=== PATIENT | female | born 1945 | race Caucasian/White ===

== ENCOUNTER → 2019-07-18 15:35 | Outpatient (CLI) | payer MEDICARE, MEDICAID, SELFPAY ==
--- NOTE | 2019-07-18 15:40 | DI.RAD.S_ITS ---
PROCEDURE: XR LUMBAR SPINE MIN 4V INDICATIONS: axial low back pain >3 months TECHNIQUE: 5 views of the lumbar spine were acquired. COMPARISON: [facility], CR, SPINE LUMB 2 OR 3VW, 05/09/2015, 14:26. FINDINGS: Bones: No fracture or focal osseous destruction. Multilevel degenerative endplate sclerosis and spurring. Diffuse facet arthropathy. Straightening of the normal lordotic curvature. Severe diffuse narrowing of the lumbar disc spaces. Dextroscoliosis as before Soft tissues: Overlying bowel gas pattern is normal. No suspicious soft tissue calcifications. Oblique images: Severely suboptimal due to advanced degenerative sclerosis IMPRESSION: Severe lumbar spondylosis and facet arthropathy. No definite change since 05/09/15 Straightening of the normal lordotic curvature. Dextroscoliosis as before Dictated by: Bakari Dave M.D. on 07/18/2019 at 16:47 Approved by: Bakari Dave M.D. on 07/18/2019 at 16:51
--- NOTE | 2019-07-18 15:40 | DI.MRI.S_ITS ---
PROCEDURE: MR LUMBAR SPINE WO CON INDICATIONS: axial low back pain >3 months TECHNIQUE: Noncontrast sagittal T1 spin echo and T2 fast echo, sagittal STIR, axial T1 and T2 fast spin echo through the lumbar spine. In cases with scoliosis, additional coronal T2 fast spin echo may be performed. COMPARISON: [facility], MR, LUMBAR SPINE W/O CONTRAST, 05/20/2015, 11:39. FINDINGS: Image quality: Excellent. Alignment and Curvature: Dextroscoliosis Bone Marrow: No acute fracture. Straightening of the normal lordotic curvature. Multilevel degenerative endplate sclerosis and spurring. Diffuse facet arthropathy. Spinal Cord: Conus medullaris terminates at the L1 level. Visualized cord demonstrates normal signal and size. Paraspinous Soft Tissues: There is nonspecific, dependent posterior subcutaneous soft tissue edema from level of L1-L5 L1-L2: Mild canal narrowing. Moderate left foraminal narrowing. No right foraminal stenosis. No interval change. Partial effacement of both lateral recesses with asymmetric appearance, left greater than right. L2-L3: No canal stenosis. No foraminal narrowing Partial effacement of both lateral recesses with bilaterally symmetric appearance. No interval change L3-L4: Mild to moderate canal stenosis. Left lateral recess appears patent. There is severe effacement of the right lateral recess which appears grossly unchanged. Mild bilateral foraminal narrowing. No interval change L4-L5: No canal stenosis. Partial effacement of both lateral recesses with bilaterally symmetric appearance. Mild bilateral foraminal narrowing L5-S1: No canal stenosis. No lateral recess narrowing. Mild right foraminal stenosis. No left foraminal narrowing. No interval change IMPRESSION: Overall, no interval change since 05/20/15 as detailed above. Dextroscoliosis. Dictated by: Bakari Dave M.D. on 07/18/2019 at 17:30 Approved by: Bakari Dave M.D. on 07/18/2019 at 17:38
== END ==
PROVIDERS: PCP Family Medicine; Visit Provider Registered Nurse
DX: M54.5 Low back pain (principal); M41.9 Scoliosis, unspecified; M47.817 Spondylosis without myelopathy or radiculopathy, lumbosacral region; M47.816 Spondylosis without myelopathy or radiculopathy, lumbar region
CPT/HCPCS: 72110; 72148

== ENCOUNTER 2020-01-13 20:04 | Emergency (ER) | payer MEDICARE, MEDICAID, SELFPAY ==
[2020-01-13 20:15] VITALS: BP 185/81; PULSE 102; RESP 19; TEMP 36.8; O2SAT 95; BMI 36.5
--- NOTE | 2020-01-13 21:02 | ED.URI ---
HPI - URI/Sore Throat General Chief Complaint: Upper Respiratory Symptoms Stated Complaint: cough,fever Time Seen by Provider: 01/13/20 20:16 Source: patient Mode of arrival: Family Vehicle Limitations: no limitations History of Present Illness HPI Narrative: 74-year-old female nonsmoker with history of asthma and diabetes presents with a chief complaint of some increasing work of breathing and cough withSome body aches and chills but no measured fever. She denies any recent travel or exposure to known persons of interest for COVID-19. Patient has been using her bronchodilators at home. She has had no nausea or vomiting. She denies any chest pain. She has had no constipation or diarrhea. She has had no dysuria, frequency or urgency. MD Complaint: cough and nasal congestion Onset (ago): day(s) Duration: constant Severity: moderate Relieving factors: nothing Exacerbating factors: nothing Description of mucous: clear Able to tolerate fluids by mouth: Yes Associated symptoms: rhinorrhea, nasal congestion and cough Treatments prior to arrival: cold medicine Related Data Home Medications Medication Instructions Recorded Confirmed mecobalamin (vitamin B12) PO DAILY 07/04/19 07/04/19 Previous Rx's Medication Instructions Recorded glipizide [Glucotrol XL] 5 mg PO QAM #90 tab 02/19/17 omeprazole 20 mg PO QAM #90 cap 02/23/17 albuterol sulfate 3 ml INH X1 PRN #1 box 05/03/17 albuterol sulfate [Ventolin HFA] 1 puff INH Q4HP PRN #8 gm 05/03/17 inhalational spacing device #1 u 05/03/17 [Vortex Holding Chamber] losartan 25 mg PO QDAY #90 tab 07/05/17 lidocaine 5 % topical patch 1 patch TOP DAILY #30 each MDD 12 07/04/19 hours in a 24 hour period naproxen 500 mg tablet 500 mg PO BID #180 tab 07/04/19 prednisone See Rx Instructions .ROUTE 01/14/20 .COMPLEX #30 tab Allergies Allergy/AdvReac Type Severity Reaction Status Date / Time amphetamine [AMPHETAMINE] Allergy Mild ELEVATED BP Verified 07/04/19 15:30 fentanyl [FENTANYL] Allergy Mild Verified 07/04/19 15:30 fluoxetine [FLUOXETINE] Allergy Mild Verified 07/04/19 15:30 hydrocodone [HYDROCODONE] Allergy Mild Verified 07/04/19 15:30 theophylline [THEOPHYLLINE] Allergy Mild Verified 07/04/19 15:30 Petroleum Liquids Products Allergy Unknown swelling, Uncoded 07/04/19 15:30 wells Propellant used with some Allergy Unknown Uncoded 07/04/19 15:30 Albuterol Review of Systems Constitutional Constitutional: Reports body ache(s), Reports chills, Denies fatigue, Denies fever(s), Denies frequent falls, Denies lethargy and Denies weakness Eyes Eyes: Denies change in vision, Denies eye discharge, Denies irritation and Denies loss of vision ENT Ears, Nose, Mouth, and Throat: Denies change in voice, Denies dizziness, Reports nasal congestion, Denies neck pain, Denies sore throat and Denies throat swelling Cardiovascular Cardiovascular: Denies chest pain, Denies irregular heart rhythm, Denies lightheadedness, Denies palpitations, Reports dyspnea, Denies dyspnea on exertion and Denies orthopnea Respiratory Respiratory: Reports cough, Reports dyspnea, Denies dyspnea on exertion and Reports wheezing Gastrointestinal Gastrointestinal: Denies abdominal pain, Denies change in bowel habits, Denies diarrhea, Denies nausea and Denies vomiting Genitourinary Genitourinary: Denies hematuria, Denies flank pain, Denies urinary incontinence and Denies urinary urgency Musculoskeletal Musculoskeletal: Denies back pain, Denies muscle weakness, Denies neck pain, Denies numbness and Denies tingling Integumentary/Breasts Skin/Breast: Denies pruritus, Denies erythema, Denies rash and Denies wounds Neurologic Neurologic: Denies behavioral changes, Denies confusion, Denies dizziness, Denies frequent falls, Denies loss of vision, Denies numbness, Denies tingling and Denies weakness Psychiatric Psychiatric: Denies anxiety, Denies behavioral changes, Denies confusion, Denies depression, Denies homicidal ideation and Denies suicidal ideation Endocrine Endocrine: Denies fatigue, Denies flushing and Denies palpitations Hematologic/Lymphatic Hematologic/Lymphatic: Denies easy bruising Allergic/Immunologic Allergic/Immunologic: Denies urticaria, Denies throat swelling and Reports wheezing Patient History Social History Smoking Status: Former smoker Smoking Status: Former smoker Substance Use Type: does not use Exam Narrative Exam Narrative: GENERAL: [74] year old patient appears stated age. Well-nourished, well-developed patient, in mild distress. HEAD: Atraumatic. Normocephalic. EYES: Pupils equal round and reactive. Extraocular motions intact. No scleral icterus. No injection or drainage. ENT: Nose without bleeding, purulent drainage. Throat without erythema, tonsillar hypertrophy or exudate. Airway patent. NECK: Trachea midline. Non tender CARDIOVASCULAR: Regular rate and rhythm without murmurs, gallops, or rubs. RESPIRATORY: Mild expiratory wheeze, most noted in bilateral bases, no rales or rhonchi. No signs of respiratory distress such as tachypnea or use of accessory muscles GASTROINTESTINAL: Abdomen soft, non-tender, nondistended. EXTREMITIES: No edema or joint tenderness. BACK: Nontender without deformity or crepitance. No flank tenderness. NEURO: AOx3. SKIN: No rash or erythema of visible areas Initial Vital Signs Initial Vital Signs: Vital Signs Temperature 98.3 F 01/13/20 20:15 Pulse Rate 102 H 01/13/20 20:15 Respiratory Rate 19 01/13/20 20:15 Blood Pressure 185/81 H 01/13/20 20:15 Pulse Oximetry 95 01/13/20 20:15 Course Course Course Narrative: Patient feeling better after bronchodilators and some steroid. We were preparing to discharge the patient when she said that she had been dropped off by her son who then drove to [place]. She has no car and lives in the [facility] and there are no more ferries running. Patient resting well throughout the course of the night. She has obstructive sleep apnea and there has been talk about getting her on oxygen at home while she sleeps, over the course of the night she had 2 L by nasal cannula and had sats in the mid to upper 90s. Upon waking she feels well and is able to ambulate to the bathroom without any difficulty, she does have some harsh cough. She has been given extensive return precautions has had questions answered to her apparent satisfaction. She wants to leave and take a cab to the [place] and has support upon her return Orders Ordered: ED Orders 01/13/20 21:24 Influenza A & B (PCR) Stat 01/13/20 22:25 Basic Metabolic Panel Stat Complete Blood Count AUTO DIFF Stat Procalcitonin Stat 01/14/20 05:00 Respiratory Panel (Film Array) Stat Discontinued Medications Albuterol/Ipratropium (Duoneb) 3 ml INH NOW ONE Stop: 01/13/20 21:28 Last Admin: 01/13/20 21:45 Dose: 3 ml Documented by: VINCENT Prednisone (Deltasone) 40 mg PO NOW ONE Stop: 01/13/20 21:28 Last Admin: 01/13/20 22:42 Dose: 40 mg Documented by: GLORIA Vital Signs Vital signs: Vital Signs - 8 hr 01/13/20 23:38 01/14/20 03:00 01/14/20 05:00 Pulse Rate 91 H 83 83 Respiratory Rate 16 Blood Pressure [Right Arm] 151/66 H 143/65 H 155/70 H Pulse Oximetry 92 95 94 01/14/20 06:30 Pulse Rate 83 Respiratory Rate 15 Blood Pressure [Right Arm] 151/66 H Pulse Oximetry 96 MDM - URI/Sore Throat Lab Data Result diagrams: 01/14/20 00:36 01/14/20 00:36 Labs: Lab Results 01/13/20 01/14/20 01/14/20 Range/Units 21:24 00:36 00:36 WBC 5.0 (4.5-11.0) X10^3/uL RBC 3.98 L (4.0-5.2) X10^6/uL Hgb 12.6 (12.0-16.0) g/dL Hct 37.3 (36-46) % MCV 93.7 (80-100) fL MCH 31.7 (26-34) PG MCHC 33.8 (30-36) % RDW 13.0 (11.6-14.8) % Plt Count 157 (150-400) X10^3/uL Neut % (Auto) 66.4 (50-75) % Lymph % (Auto) 15.8 L (25-40) % Andrews % (Auto) 13.9 (3-14) % Eos % (Auto) 3.2 (2-4) % Baso % (Auto) 0.7 (0-2) % Neut # (Auto) 3300 (4496-0439) /uL Lymph # (Auto) 800 L (2204-9326) /uL Andrews # (Auto) 700 (0-900) /uL Eos # (Auto) 200 (0-450) /uL Baso # (Auto) 0 (0-100) /uL Sodium (137-145) mmol/L Potassium (3.4-5.1) mmol/L Chloride (98-107) mmol/L Carbon Dioxide (22-32) mmol/L BUN (7-17) mg/dL Creatinine (0.52-1.04) mg/dL Estimated GFR (>60) mL/min BUN/Creatinine Ratio (6-22) Glucose (80-110) mg/dL Calcium (8.4-10.2) mg/dL Procalcitonin < 0.05 (<0.5) ng/mL Chlamy pneumoniae PCR (Not Detect) Adenovirus (PCR) (Not Detect) B.parapertussis DNA PCR (Not Detect) Coronavirus OC43 (PCR) (Not Detect) Coronavirus HKU1 (PCR) (Not Detect) Coronavirus 229E (PCR) (Not Detect) Coronavirus NL63 (PCR) (Not Detect) Human Metapneumovir PCR (Not Detect) Influenza A (RT-PCR) Flu a negative (NEGATIVE) Influenza Type A (PCR) (Not Detect) Influenza B (RT-PCR) Flu b negative (NEGATIVE) Influenza Type B (PCR) (Not Detect) M. pneumoniae (PCR) (Not Detect) Parainfluenza 1 (PCR) (Not Detect) Parainfluenza 2 (PCR) (Not Detect) Parainfluenza 3 (PCR) (Not Detect) Parainfluenza 4 (PCR) (Not Detect) RSV (PCR) (Not Detect) Entero/Rhino (PCR) (Not Detect) 01/14/20 01/14/20 Range/Units 00:36 05:00 WBC (4.5-11.0) X10^3/uL RBC (4.0-5.2) X10^6/uL Hgb (12.0-16.0) g/dL Hct (36-46) % MCV (80-100) fL MCH (26-34) PG MCHC (30-36) % RDW (11.6-14.8) % Plt Count (150-400) X10^3/uL Neut % (Auto) (50-75) % Lymph % (Auto) (25-40) % Andrews % (Auto) (3-14) % Eos % (Auto) (2-4) % Baso % (Auto) (0-2) % Neut # (Auto) (4051-5477) /uL Lymph # (Auto) (3215-3265) /uL Andrews # (Auto) (0-900) /uL Eos # (Auto) (0-450) /uL Baso # (Auto) (0-100) /uL Sodium 137 (137-145) mmol/L Potassium 3.8 (3.4-5.1) mmol/L Chloride 103 (98-107) mmol/L Carbon Dioxide 28 (22-32) mmol/L BUN 22 H (7-17) mg/dL Creatinine 0.90 (0.52-1.04) mg/dL Estimated GFR > 60.0 (>60) mL/min BUN/Creatinine Ratio 24.4 H (6-22) Glucose 224 H (80-110) mg/dL Calcium 9.0 (8.4-10.2) mg/dL Procalcitonin (<0.5) ng/mL Chlamy pneumoniae PCR Not detected (Not Detect) Adenovirus (PCR) Not detected (Not Detect) B.parapertussis DNA PCR Not detected (Not Detect) Coronavirus OC43 (PCR) Not detected (Not Detect) Coronavirus HKU1 (PCR) Not detected (Not Detect) Coronavirus 229E (PCR) Not detected (Not Detect) Coronavirus NL63 (PCR) Not detected (Not Detect) Human Metapneumovir PCR Detected H (Not Detect) Influenza A (RT-PCR) (NEGATIVE) Influenza Type A (PCR) Not detected (Not Detect) Influenza B (RT-PCR) (NEGATIVE) Influenza Type B (PCR) Not detected (Not Detect) M. pneumoniae (PCR) Not detected (Not Detect) Parainfluenza 1 (PCR) Not detected (Not Detect) Parainfluenza 2 (PCR) Not detected (Not Detect) Parainfluenza 3 (PCR) Not detected (Not Detect) Parainfluenza 4 (PCR) Not detected (Not Detect) RSV (PCR) Not detected (Not Detect) Entero/Rhino (PCR) Not detected (Not Detect) Imaging Data Chest x-ray: Radiologist's Impression: [address] [address] XRay Report Signed Patient: Carlitos Abdullahi#: [id number] : 1945Acct:[id number] Age/Sex: 74 / FDate of Service: 01/13/20 Loc: ED Accession Number: [id number] Procedure: XR chest 2V Ordering Provider: Blake Steen D.O. PROCEDURE: XR CHEST 2V INDICATIONS: cough, fever TECHNIQUE: 2 views of the chest were acquired. COMPARISON: [facility], CHEST 2 VIEW, 03/03/2007, 18:36. FINDINGS: Surgical changes and devices: None. Lungs and pleura: Lungs are clear. No pleural effusions or pneumothorax. Mediastinum: Mediastinal contours are normal. Heart size is normal. Bones and chest wall: No suspicious bony abnormalities. Soft tissues appear unremarkable. IMPRESSION: No acute cardiopulmonary pathology. Dictated by: Ruben Keane M.D. on 01/13/2020 at 21:20 Approved by: Ruben Keane M.D. on 01/13/2020 at 21:21 Discharge Plan Departure Patient Disposition: Home Clinical Impression: Upper respiratory virus Asthma exacerbation Qualifiers: Asthma severity: mild Asthma persistence: intermittent Qualified Code(s): J45.21 - Mild intermittent asthma with (acute) exacerbation Instructions: Asthma -- Adult, DI for Viral Upper Respiratory Infection -- Adult Activity Restrictions/Additional Instructions: *You have been diagnosed with [acute viral upper respiratory infection with asthma exacerbation] *What to do: *Take medications as directed *Follow up with your primary care provider in 2-3 days, call for an appointment. Let them know you were seen in the Emergency Department and that we ask that you be seen in follow up *Return to ER if you should have any new, worsening or concerning symptoms Prescriptions: New prednisone 10 mg tablet See Rx Instructions .ROUTE .COMPLEX Qty: 30 RF: 0 No Action glipizide [Glucotrol XL] 5 MG tablet extended release 24hr 5 mg PO QAM Qty: 90 RF: 3 omeprazole 20 MG capsule,delayed release(DR/EC) 20 mg PO QAM Qty: 90 RF: 3 albuterol sulfate 2.5 MG/3 ML solution for nebulization 3 ml INH X1 PRNQty: 1 RF: 0 albuterol sulfate [Ventolin HFA] 90 MCG/PUFF HFA aerosol inhaler 1 puff INH Q4HP PRNQty: 8 RF: PRN (DME) inhalational spacing device [Vortex Holding Chamber] 1 EACH spacer 1 ea MC X1 Qty: 1 RF: 0 losartan 25 MG tablet 25 mg PO QDAY Qty: 90 RF: 3 mecobalamin (vitamin B12) PO DAILY RF: 0 lidocaine 5 % adhesive patch,medicated 1 patch TOP DAILY MDD 12 hours in a 24 hour period Qty: 30 RF: 5 naproxen 500 mg tablet 500 mg PO BID Qty: 180 RF: 3 Referrals: Osmin Coombs [Primary Care Provider] -
--- NOTE | 2020-01-13 21:07 | DI.RAD.S_ITS ---
PROCEDURE: XR CHEST 2V INDICATIONS: cough, fever TECHNIQUE: 2 views of the chest were acquired. COMPARISON: [facility], , CHEST 2 VIEW, 03/03/2007, 18:36. FINDINGS: Surgical changes and devices: None. Lungs and pleura: Lungs are clear. No pleural effusions or pneumothorax. Mediastinum: Mediastinal contours are normal. Heart size is normal. Bones and chest wall: No suspicious bony abnormalities. Soft tissues appear unremarkable. IMPRESSION: No acute cardiopulmonary pathology. Dictated by: Ruben Keane M.D. on 01/13/2020 at 21:20 Approved by: Ruben Keane M.D. on 01/13/2020 at 21:21
--- NOTE | 2020-01-13 21:29 | PC.NURSE ---
pt reports cleaning out an old storage area brushing down cobwebs and feels like that stirred things up with her respiratory symptoms.
[2020-01-13] MEDS: ALBUTEROL/IPRATROPIUM 3 ML AMPUL INH (21:45)
[2020-01-13 21:48] VITALS: PULSE 97; RESP 18; O2SAT 97
[2020-01-13 21:56] LABS: Influenza A - CEPHEID Flu A NEGATIVE (NEGATIVE); Influenza B - CEPHEID Flu B NEGATIVE (NEGATIVE)
[2020-01-13] MEDS: predniSONE 20 MG TABLET 40 MG PO (22:42)
[2020-01-13 23:38] VITALS: BP 151/66; PULSE 91; RESP 16; O2SAT 92
[2020-01-14 00:53] LABS: Add Manual Diff / Slide Review NO; Basophils Absolute Auto 0 /uL (0-100); Basophils Percent Auto 0.7 % (0-2); Eosinophils Absolute Auto 200 /uL (0-450); Eosinophils Percent Auto 3.2 % (2-4); Hematocrit 37.3 % (36-46); Hemoglobin 12.6 g/dL (12.0-16.0); Lymphocytes Absolute Auto 800 /uL (1100-4500); Lymphocytes Percent Auto 15.8 % (25-40); Mean Corpuscular HGB Conc 33.8 % (30-36); Mean Corpuscular Hemoglobin 31.7 PG (26-34); Mean Corpuscular Volume 93.7 fL (80-100); Monocytes Absolute Auto 700 /uL (0-900); Monocytes Percent Auto 13.9 % (3-14); Neutrophils Absolute Auto 3300 /uL (1500-7000); Neutrophils Percent Auto 66.4 % (50-75); Platelet Count 157 X10^3/uL (150-400); Red Blood Cell Count 3.98 X10^6/uL (4.0-5.2)
[2020-01-14 01:09] LABS: BUN Creatinine Ratio 24.4 (6-22); Blood Urea Nitrogen 22 mg/dL (7-17); Carbon Dioxide 28 mmol/L (22-32); Chloride 103 mmol/L (98-107); Estimated Glomerular Filt Rate > 60.0 mL/min (>60); Glucose 224 mg/dL (80-110); HEMOLYSIS < 15 (0-50); Potassium 3.8 mmol/L (3.4-5.1); Sodium 137 mmol/L (137-145)
[2020-01-14 01:25] LABS: Procalcitonin < 0.05 ng/mL (<0.5)
[2020-01-14 03:00] VITALS: BP 143/65; PULSE 83; O2SAT 95
[2020-01-14 05:00] VITALS: BP 155/70; PULSE 83; O2SAT 94
[2020-01-14 06:15] LABS: Adenovirus Not Detected (Not Detect); Bordetella pertussis Not Detected (Not Detect); Chlamydophila pneumoniae Not Detected (Not Detect); Coronavirus 229E Not Detected (Not Detect); Coronavirus HKU1 Not Detected (Not Detect); Coronavirus NL 63 Not Detected (Not Detect); Coronavirus OC43 Not Detected (Not Detect); Human Metapneumovirus Detected (Not Detect); Human Rhinovirus/Enterovirus Not Detected (Not Detect); Influenza A Not Detected (Not Detect); Influenza B Not Detected (Not Detect); Mycoplasma pneumoniae Not Detected (Not Detect); Parainfluenza Virus 1 Not Detected (Not Detect); Parainfluenza Virus 2 Not Detected (Not Detect); Parainfluenza Virus 3 Not Detected (Not Detect); Parainfluenza Virus 4 Not Detected (Not Detect); Respiratory Syncytial Virus Not Detected (Not Detect)
[2020-01-14 06:30] VITALS: BP 151/66; PULSE 83; RESP 15; O2SAT 96
[2020-01-14 08:45] VITALS: BP 167/80; PULSE 91; RESP 20; O2SAT 98
== END 2020-01-14 07:40 | disposition home or self-care (01) ==
PROVIDERS: Emergency Provider Emergency Medicine; PCP Family Medicine
DX: J06.9 Acute upper respiratory infection, unspecified (principal); J45.21 Mild intermittent asthma with (acute) exacerbation; R50.9 Fever, unspecified
CPT/HCPCS: 71046; 80048; 84145; 85025; 87502; 87633; 94640; 99283; 99284

== ENCOUNTER → 2021-05-16 10:40 | Outpatient (CLI) | payer MEDICARE, MEDICAID, SELFPAY ==
[2021-05-16 19:41] LABS: Alanine Aminotransferase 25 IU/L (<35); Albumin 3.8 g/dL (3.5-5.0); Albumin Globulin Ratio 1.2 (1.0-2.8); Alkaline Phosphatase 98 U/L (38-126); Aspartate Aminotransferase 41 IU/L (14-36); BUN Creatinine Ratio 28.3 (6-22); Bilirubin Total 0.6 mg/dL (0.2-1.3); Blood Urea Nitrogen 30 mg/dL (7-17); Calcium 9.5 mg/dL (8.4-10.2); Carbon Dioxide 27 mmol/L (22-32); Chloride 101 mmol/L (98-107); Estimated Glomerular Filt Rate 50.8 mL/min (>60); Globulin 3.1 g/dL (1.7-4.1); Glucose 287 mg/dL (80-110); Sodium 137 mmol/L (137-145); Total Protein 6.9 g/dL (6.3-8.2)
[2021-05-16 19:44] LABS: HEMOLYSIS 62 (0-50)
[2021-05-16 19:53] LABS: Add Manual Diff / Slide Review NO; Basophils Absolute Auto 0 /uL (0-100); Basophils Percent Auto 0.9 % (0-2); Eosinophils Absolute Auto 200 /uL (0-450); Eosinophils Percent Auto 3.3 % (2-4); Hematocrit 42.4 % (36-46); Hemoglobin 14.2 g/dL (12.0-16.0); Lymphocytes Absolute Auto 1400 /uL (1100-4500); Lymphocytes Percent Auto 28.3 % (25-40); Mean Corpuscular HGB Conc 33.4 % (30-36); Mean Corpuscular Hemoglobin 31.7 PG (26-34); Mean Corpuscular Volume 94.7 fL (80-100); Monocytes Absolute Auto 400 /uL (0-900); Monocytes Percent Auto 7.6 % (3-14); Neutrophils Absolute Auto 3000 /uL (1500-7000); Neutrophils Percent Auto 59.9 % (50-75); Platelet Count 176 X10^3/uL (150-400); Red Blood Cell Count 4.47 X10^6/uL (4.0-5.2); Red Cell Distribution Width 12.9 % (11.6-14.8); White Blood Cell Count 4.9 X10^3/uL (4.5-11.0)
[2021-05-16 20:11] LABS: Hemoglobin A1C% w Est Avg Glu 10.5 % (4.0-6.0)
== END ==
PROVIDERS: PCP Family Medicine; Visit Provider Family Medicine
DX: E11.49 Type 2 diabetes mellitus with other diabetic neurological complication (principal); I82.401 Acute embolism and thrombosis of unspecified deep veins of right lower extremity; E11.9 Type 2 diabetes mellitus without complications; Z79.4 Long term (current) use of insulin
CPT/HCPCS: 80053; 83036; 85025

== ENCOUNTER → 2021-05-22 10:46 | Outpatient (CLI) | payer MEDICARE, OTHER, MEDICAID, SELFPAY ==
[2021-05-22 11:34] LABS: COVID19 -Nasal RAPID Negative (Negative)
== END ==
PROVIDERS: PCP Family Medicine; Referring Provider Internal Medicine; Visit Provider Internal Medicine
DX: Z20.822 Contact with and (suspected) exposure to COVID-19 (principal)
CPT/HCPCS: 87635; C9803

== ENCOUNTER → 2021-05-22 13:01 | Outpatient (CLI) | payer MEDICARE, OTHER, MEDICAID, SELFPAY ==
--- NOTE | 2021-05-28 11:31 | PM.PFT.1 ---
Pulmonary Function Test Referral & Results Date Patient Seen: 05/22/21 Requesting provider: Yosvany Duenas Indication: Asthma Results: The spirometry demonstrates an FVC of 2.79 L which is 86% of predicted. The FEV1 was measured at 2.20 L which is 90% of predicted. The FEV1/FVC ratio was 79 which is 105% of predicted. Following the administration of bronchodilator there was no significant change. Lung volumes show an SVC of 3.01 L which is 97% of predicted. The diffusing capacity was measured at 22.39 which is 79% of predicted. No hemoglobin value was provided, so no correction for potential anemia could be made, if appropriate. The maximum voluntary ventilation was minimally reduced Interpretation: This study demonstrates normal spirometry and lung volumes. Diffusing capacity maybe minimally reduced unless patient is anemic as above. Clinical correlation suggested
== END ==
PROVIDERS: PCP Family Medicine; Referring Provider Internal Medicine Pulmonary Disease; Visit Provider Internal Medicine Pulmonary Disease
DX: R09.02 Hypoxemia (principal); J45.40 Moderate persistent asthma, uncomplicated; Z20.822 Contact with and (suspected) exposure to COVID-19
CPT/HCPCS: 87635; 94060; 94726; 94729; C9803

== ENCOUNTER → 2021-05-27 16:29 | Outpatient (CLI) | payer MEDICARE, OTHER, MEDICAID, SELFPAY ==
[2021-05-28 20:05] LABS: Appearance Urine UA SL CLOUDY; Bilirubin Urine UA NEGATIVE (NEGATIVE); Color Urine UA YELLOW; Glucose Urine UA 2+ g/dL (Negative); Ketones Urine UA NEGATIVE (NEGATIVE); Leukocyte Esterase Urine UA 1+ (NEGATIVE); Nitrite Urine UA POSITIVE (Negative); Occult Blood Urine UA TRACE-LYSED (Negative); Protein Urine UA NEGATIVE (Negative); Urobilinogen Urine UA 0.2 E.U./dL (0.2)
[2021-05-28 20:07] LABS: pH Urine UA 5.5 (4.5-8.0)
[2021-05-28 20:14] LABS: Bacteria Urine Few (2-10); Culture Indicated Urine Specimen Cultured; Mucus Urine 1+ (Negative); RBC Urine 0-1/HPF (0-5/HPF); Squamous Epithelial Cell Urine 1-5 /HPF (0-5/HPF); Transitional Epi Cells Urine 1-5/HPF (0-5/HPF); WBC Urine 10-30/HPF (0-5/HPF)
== END ==
PROVIDERS: PCP Family Medicine; Visit Provider Family Medicine
DX: R30.9 Painful micturition, unspecified (principal)
CPT/HCPCS: 81001; 87077; 87086; 87186

== ENCOUNTER → 2021-09-25 14:17 | Outpatient (CLI) | payer MEDICARE, OTHER, MEDICAID, SELFPAY ==
[2021-09-25 19:43] LABS: Hemoglobin A1C% w Est Avg Glu 7.5 % (4.0-6.0)
[2021-09-25 19:44] LABS: Alanine Aminotransferase 24 IU/L (<35); Albumin Globulin Ratio 1.3 (1.0-2.8); Alkaline Phosphatase 91 U/L (38-126); Aspartate Aminotransferase 35 IU/L (14-36); Bilirubin Total 0.4 mg/dL (0.2-1.3); Blood Urea Nitrogen 29 mg/dL (7-17); Carbon Dioxide 32 mmol/L (22-32); Chloride 97 mmol/L (98-107); Estimated Glomerular Filt Rate 41.5 mL/min (>60); Globulin 3.1 g/dL (1.7-4.1); Glucose 212 mg/dL (80-110); HEMOLYSIS 15 (0-50); Potassium 3.7 mmol/L (3.4-5.1); Sodium 137 mmol/L (137-145); Total Protein 7.1 g/dL (6.3-8.2)
== END ==
PROVIDERS: PCP Family Medicine; Visit Provider Family Medicine
DX: E11.49 Type 2 diabetes mellitus with other diabetic neurological complication (principal)
CPT/HCPCS: 80053; 83036

== ENCOUNTER → 2021-12-11 11:37 | Outpatient (CLI) | payer MEDICARE, OTHER, MEDICAID, SELFPAY ==
[2021-12-11 19:24] LABS: Alanine Aminotransferase 23 IU/L (<35); Albumin 3.9 g/dL (3.5-5.0); Albumin Globulin Ratio 1.1 (1.0-2.8); Alkaline Phosphatase 91 U/L (38-126); Aspartate Aminotransferase 33 IU/L (14-36); Bilirubin Total 0.9 mg/dL (0.2-1.3); Blood Urea Nitrogen 23 mg/dL (7-17); Calcium 9.7 mg/dL (8.4-10.2); Carbon Dioxide 32 mmol/L (22-32); Chloride 106 mmol/L (98-107); Cholesterol 204 mg/dL (140-199); Estimated Glomerular Filt Rate 59.7 mL/min (>60); Globulin 3.4 g/dL (1.7-4.1); Glucose 191 mg/dL (80-110); HDL Cholesterol 31 mg/dL (40-60); HEMOLYSIS 21 (0-50); LDL Cholesterol Calculated 148 mg/dL (<100); Potassium 3.9 mmol/L (3.4-5.1); Sodium 142 mmol/L (137-145); Total Protein 7.3 g/dL (6.3-8.2); Triglycerides 126 mg/dL (35-150)
[2021-12-11 19:39] LABS: Hemoglobin A1C% w Est Avg Glu 7.8 % (4.0-6.0)
== END ==
PROVIDERS: PCP Family Medicine; Visit Provider Family Medicine
DX: E11.49 Type 2 diabetes mellitus with other diabetic neurological complication (principal); I10 Essential (primary) hypertension; N18.9 Chronic kidney disease, unspecified; R41.89 Other symptoms and signs involving cognitive functions and awareness
CPT/HCPCS: 80053; 80061; 83036

== ENCOUNTER 2024-03-20 12:04 | Emergency (ER) | payer MEDICARE, OTHER, MEDICAID, SELFPAY ==
[2024-03-20] VITALS (16 sets, daily range): BP systolic 122–151; BP diastolic 58–128; PULSE 72–78; RESP 18; TEMP 36.8; O2SAT 89–98; BMI 38.9
--- NOTE | 2024-03-20 13:10 | ED.RECABL ---
HPI - Recheck/Abnormal Lab/Rx General Chief Complaint: Recheck/Abnormal Lab/Rx Stated Complaint: Nephrostomy, no output x3days Time Seen by Provider: 03/20/24 12:27 Source: patient and EMS Mode of arrival: EMS History of Present Illness HPI narrative: Patient is a 78-year-old female. Difficult to obtain the exact sequence of the issues that she has been having with her nephrostomy tube. She has a history of hypertension, hyperlipidemia, type 2 diabetes, venous insufficiency, COPD and asthma who has a nephrostomy tube. Unsure as to when it was placed but patient states that it may have in his long as 6 weeks ago. She is here because there has been no drainage from the tube for 3 days. She is still urinating. She is unsure as to why she has the nephrostomy tube. She has not sure at what facility they to was placed. She does not have a machine sole leveler. She denies fevers. Related Data Home Medications Medication Instructions Recorded Confirmed mecobalamin (vitamin B12) PO DAILY 07/04/19 01/27/22 aspirin 81 mg tablet,delayed 81 mg PO DAILY 03/04/21 01/27/22 release (Adult Low Dose Aspirin) Previous Rx's Medication Instructions Recorded albuterol sulfate 2.5 mg/3 mL 3 ml INH X1 PRN ##1 05/03/17 (0.083 %) solution for nebulization albuterol sulfate 90 mcg/actuation 1 puff INH Q4HP PRN ##8 05/03/17 aerosol inhaler (Ventolin HFA) inhalational spacing device ##1 05/03/17 (Vortex Holding Chamber) blood sugar diagnostic (Blood #100 ea 05/27/21 Glucose Test strips) fluticasone propionate 50 1 spray intranasal DAILY #3 ea 07/21/21 mcg/actuation nasal spray,suspension insulin aspart U-100 100 unit/mL 5 unit (0.05 mL) SUBCUT TID Dose 08/11/21 (3 mL) subcutaneous pen (Novolog change #15 mL FlexPen U-100 Insulin aspart) alcohol swabs (Alcohol Prep Pads) 1 pad topical QID USE TO CLEAN 11/14/21 SKIN BEFORE BLOOD GLUCOSE TESTING. #100 ea chlorthalidone 25 mg tablet See Rx Instructions .Route 12/15/21 .COMPLEX #90 tabs furosemide 20 mg tablet 20 mg PO DAILY #90 tabs 12/15/21 losartan 25 mg tablet 25 mg PO QDAY #90 tabs 12/15/21 pioglitazone 30 mg tablet See Rx Instructions .Route 12/15/21 .COMPLEX #90 tabs blood sugar diagnostic (Blood #90 ea 01/19/22 Glucose Test strips) blood-glucose meter #1 ea 01/19/22 lancets 30 gauge (Easy Touch #200 ea 01/19/22 Safety Lancets) celecoxib 200 mg capsule (Celebrex) 200 mg PO DAILY #30 caps 01/27/22 gabapentin 100 mg capsule 100 mg PO BEDTIME #60 caps 01/27/22 insulin glargine 100 unit/mL (3 20 unit (0.2 mL) SUBCUT QPM #15 mL 01/27/22 mL) subcutaneous pen pravastatin 20 mg tablet 20 mg PO BEDTIME #90 tabs 01/27/22 blood-glucose meter,continuous #1 ea 02/06/22 (Dexcom G6 Recycling Operator) blood-glucose sensor (Dexcom G6 #3 ea 02/06/22 Sensor device) blood-glucose transmitter (Dexcom #1 ea 02/06/22 G6 Transmitter device) metoprolol succinate 25 mg See Rx Instructions .Route 09/30/22 tablet,extended release 24 hr .COMPLEX #180 tabs Allergies Allergy/AdvReac Type Severity Reaction Status Date / Time amphetamine [AMPHETAMINE] Allergy Mild ELEVATED BP Verified 05/27/21 15:22 fentanyl [FENTANYL] Allergy Mild Verified 05/27/21 15:22 fluoxetine [FLUOXETINE] Allergy Mild Verified 05/27/21 15:22 hydrocodone [HYDROCODONE] Allergy Mild Verified 05/27/21 15:22 theophylline [THEOPHYLLINE] Allergy Mild Verified 05/27/21 15:22 diphenhydramine Allergy Unknown Verified 05/27/21 15:22 lisinopril Allergy Unknown cough Verified 05/27/21 15:22 metformin Allergy Unknown pain, Verified 05/27/21 15:22 diarrhea oxycodone Allergy Unknown Verified 05/27/21 15:22 phenylpropanolamine Allergy Unknown tachycardia, Verified 05/27/21 15:22 HTN Petroleum Liquids Products Allergy Unknown swelling, Uncoded 05/27/21 15:22 wells Propellant used with some Allergy Unknown Uncoded 05/27/21 15:22 Albuterol Review of Systems Review of Systems Narrative: See HPI Patient History Medical History Hyperlipemia Alopecia areata Cognitive impairment Chronic Kidney Disease Type 2 diabetes mellitus with other diabetic neurological complication Atrophic vaginitis Cholecystectomy planned Social History Smoking Status: Never smoker Smoking Status: Never smoker Substance Use Type: does not use Exam Initial Vital Signs Initial Vital Signs: Vital Signs Temperature 98.2 F 03/20/24 12:13 Pulse Rate 75 03/20/24 12:13 Respiratory Rate 18 03/20/24 12:13 Blood Pressure 122/58 L 03/20/24 12:13 Pulse Oximetry 92 03/20/24 12:13 Oxygen Delivery Method Room Air 03/20/24 12:13 Const General: cooperative, comfortable and No ill appearing HENMT Head: normal to inspection and normocephalic Resp Effort & Inspection: normal respiratory effort Cardio Rate: regular rate GI Inspection: normal to inspection and non-distended Neuro General: patient alert, patient awake and moves all extremities Extrem General: capillary refill normal Course Orders Ordered: ED Orders 03/20/24 13:06 Basic Metabolic Panel Stat Complete Blood Count AUTO DIFF Stat 03/20/24 13:11 CT kidney ureter bladder (KUB) Stat Vital Signs Vital signs: Vital Signs - 8 hr 03/20/24 12:13 03/20/24 12:18 03/20/24 12:29 Temperature 98.2 F Pulse Rate 75 77 74 Respiratory Rate 18 Blood Pressure 122/58 L Pulse Oximetry 92 93 Oxygen Delivery Method Room Air Oxygen Flow Rate 03/20/24 12:29 03/20/24 12:30 03/20/24 12:31 Temperature Pulse Rate 78 77 Respiratory Rate Blood Pressure 130/60 Pulse Oximetry 89 L 89 L Oxygen Delivery Method Room Air Room Air Oxygen Flow Rate 03/20/24 12:31 03/20/24 13:00 03/20/24 13:07 Temperature Pulse Rate 75 75 Respiratory Rate Blood Pressure 133/63 Pulse Oximetry 94 96 Oxygen Delivery Method Nasal Cannula Oxygen Flow Rate 2 03/20/24 13:07 03/20/24 13:30 03/20/24 13:31 Temperature Pulse Rate 74 Respiratory Rate Blood Pressure 151/128 H 143/63 H Pulse Oximetry 93 Oxygen Delivery Method Oxygen Flow Rate 03/20/24 13:31 03/20/24 14:00 03/20/24 14:01 Temperature Pulse Rate 75 76 75 Respiratory Rate Blood Pressure Pulse Oximetry 93 96 96 Oxygen Delivery Method Oxygen Flow Rate 03/20/24 14:01 03/20/24 14:30 03/20/24 15:00 Temperature Pulse Rate 72 75 Respiratory Rate Blood Pressure 145/65 H Pulse Oximetry 97 96 Oxygen Delivery Method Nasal Cannula Nasal Cannula Oxygen Flow Rate 2 2 03/20/24 15:30 03/20/24 15:31 03/20/24 15:31 Temperature 98.3 F Pulse Rate 76 75 Respiratory Rate Blood Pressure 142/64 H Pulse Oximetry 98 98 Oxygen Delivery Method Nasal Cannula Oxygen Flow Rate 2 03/20/24 16:00 Temperature Pulse Rate 74 Respiratory Rate Blood Pressure Pulse Oximetry 98 Oxygen Delivery Method Oxygen Flow Rate MDM - Recheck/Abnormal Lab/Rx Medical Records Attestation: I reviewed the patient's medical records. Lab Data Attestation: I reviewed the patient's lab results. 03/20/24 13:06 03/20/24 13:06 Labs: Lab Results 03/20/24 Range/Units 13:06 WBC 7.3 (4.5-11.0) X10^3/uL RBC 3.90 L (4.0-5.2) X10^6/uL Hgb 12.9 (12.0-16.0) g/dL Hct 38.1 (36-46) % MCV 97.7 (80-100) fL MCH 33.0 (26-34) PG MCHC 33.8 (30-36) % RDW 12.8 (11.6-14.8) % Plt Count 255 (150-400) X10^3/uL Neut % (Auto) 68.2 (50-75) % Lymph % (Auto) 22.5 L (25-40) % [place] % (Auto) 7.0 (3-14) % Eos % (Auto) 1.6 L (2-4) % Baso % (Auto) 0.7 (0-2) % Neut # (Auto) 5000 (0910-7340) /uL Lymph # (Auto) 1700 (7020-2881) /uL [place] # (Auto) 500 (0-900) /uL Eos # (Auto) 100 (0-450) /uL Baso # (Auto) 100 (0-100) /uL Sodium 139 (137-145) mmol/L Potassium 4.4 (3.4-5.1) mmol/L Chloride 104 (98-107) mmol/L Carbon Dioxide 29 (22-32) mmol/L BUN 30 H (7-17) mg/dL Creatinine 0.98 (0.52-1.04) mg/dL Estimated GFR 60 (>60) mL/min BUN/Creatinine Ratio 30.6 H (6-22) Glucose 234 H (80-110) mg/dL Calcium 9.3 (8.4-10.2) mg/dL Imaging Data CT scan - abdomen/pelvis: Radiologist's Impression: PROCEDURE: CT KIDNEY URETER BLADDER (KUB) INDICATIONS: Nephrostomy tube not draining eval for placement TECHNIQUE: Axial sections were acquired from the lung bases to the pubic symphysis. Coronal and sagittal reformats were performed. For radiation dose reduction, the following was used: automated exposure control, adjustment of mA and/or kV according to patient size. COMPARISON: [facility], CT, CT KUB, 03/02/2024, 14:01. FINDINGS: Image quality: Diagnostic. Lower Chest: Mild dependent atelectasis in posterior aspect of bilateral lung bases are seen. URINARY: Right Kidney: Right-sided percutaneous nephrostomy tube is again seen and is in satisfactory position. Nonobstructing left renal calculi measures up to 4 millimeter in size is seen. No hydronephrosis. Mild left perinephric fat stranding is seen. Right Ureter: No hydroureter. No obstructing ureteral stone. Left Kidney: No obstructing stones or hydronephrosis. Nonobstructing stone in midpole left kidney is again noted unchanged from prior study. Left Ureter: No hydroureter. Bladder: Mild diffuse bladder wall thickening is seen. No discrete bladder wall mass. ABDOMEN: Liver: No contour-deforming solid mass. Gallbladder: Gallbladder is surgically absent. Biliary ducts: No biliary dilation. Pancreas: No ductal dilation. Spleen: Size is within normal limits. Adrenal Glands: No adrenal nodules. Stomach and Bowel: There is no bowel obstruction. Appendix is visualized in right lower quadrant and is normal in size and appearance. No abnormal bowel wall thickening or mesenteric fat stranding. No abscess collection. Peritoneum: No abnormal intraperitoneal fluid. No free air. Ventral Wall: Small umbilical hernia containing fat only is seen. Abdominal Nodes: No enlarged retroperitoneal or mesenteric lymph nodes. Vessels: Aorta and inferior vena cava are normal in size. PELVIS: Pelvic Organs: Again noted is a cystic and part solid left ovarian mass not significantly changed in size and appearance from previous study series 2, image 71 Pelvic Nodes: Unremarkable. Miscellaneous: No inguinal hernias are seen. Bones: No suspicious bony lesions. No acute vertebral body compression fracture. Postsurgical changes are again seen in right femoral neck. IMPRESSION: 1. Right-sided percutaneous nephrostomy tube is in satisfactory position. No significant hydronephrosis or hydroureter is seen on the current study. Bilateral nonobstructing stones. No left-sided hydronephrosis. Mild diffuse bladder wall thickening, no discrete bladder wall mass. 2. Stable size and appearance of mixed solid and cystic left ovarian lesion. 3. No bowel obstruction. No abnormal bowel wall thickening. No free fluid or free air. Normal appendix. MDM Narrative Medical decision making narrative: Patient is not having any drainage from the nephrostomy tube however the CT scan shows that the tube is in an appropriate position. Her creatinine is unremarkable. No significant hydro was noted on the CT scan. She is producing urine. Patient can be safely discharged home with instructions to follow-up with her primary doctor almost likely need to see nephrology to determine whether or not she continues to need the nephrostomy tube. She was having some skin breakdown around the exit site from the tube however I feel that this is most likely related to the bandages that they were using. We used 4x4s and paper tape. First no signs of infection. Patient is safe for discharge home. Discharge Plan Departure Patient Disposition: Home Clinical Impression: Malfunction of nephrostomy tube Activity Restrictions/Additional Instructions: It appears that the nephrostomy tube is in correct position. Your kidney function is normal. You are urinating. I recommend that the living facility contact your primary doctor for a follow-up. I also recommend that the dressing that is used for the nephrostomy tube is gauze and paper tape as it appears the Tegaderm is causing skin breakdown. Return to the emergency department for new symptoms. Prescriptions: No Action albuterol sulfate 2.5 MG/3 ML solution for nebulization 3 ml INH X1 PRNQty: 1 0RF albuterol sulfate [Ventolin HFA] 90 MCG/PUFF HFA aerosol inhaler 1 puff INH Q4HP PRNQty: 8 PRNRF ([facility] [place]) inhalational spacing device [Vortex Holding Chamber] 1 EACH spacer 1 ea MC X1 Qty: 1 0RF ([facility] [place]) Blood Glucose Test Strip See Rx Instructions .Route Qty: 100 5RF Rx Instructions: Use to check blood sugar three times daily. fluticasone propionate 50 mcg/actuation spray,suspension 1 spray intranasal DAILY Qty: 3 1RF Rx Instructions: administer into each nostril insulin aspart U-100 [Novolog FlexPen U-100 Insulin] 100 unit/mL (3 mL) insulin pen 5 unit SUBCUT TID Qty: 15 3RF Rx Instructions: Three times daily before meals plus sliding scale. 200-250 add 2 units. 250-300 add 3 units. 300-350 add 4 units. 350-400 add 5 units. 400-500 add 6 units. alcohol swabs [Alcohol Prep Pads] Pads, Medicated 1 pad topical QID Qty: 100 0RF pioglitazone 30 mg tablet See Rx Instructions .ROUTE .COMPLEX Qty: 90 1RF Dose Instruction: TAKE 1 TABLET EVERY DAY Rx Instructions: TAKE 1 TABLET EVERY DAY chlorthalidone 25 mg tablet See Rx Instructions .ROUTE .COMPLEX Qty: 90 1RF Dose Instruction: TAKE 1 TABLET EVERY DAY Rx Instructions: TAKE 1 TABLET EVERY DAY furosemide 20 mg tablet 20 mg PO DAILY Qty: 90 1RF losartan 25 mg tablet 25 mg PO QDAY Qty: 90 1RF Rx Instructions: Bridge rx while waiting for mail order rx. ([facility] [place]) blood-glucose meter Kit See Rx Instructions .Route Qty: 1 0RF Rx Instructions: Check blood glucose TID before meals (DME) Blood Glucose Test Strip See Rx Instructions .Route Qty: 90 3RF Rx Instructions: Check blood glucose TID before meals (DME) lancets [Easy Touch Safety Lancets] 30 gauge misc See Rx Instructions .Route Qty: 200 3RF Rx Instructions: Check blood glucose TID before meals (DME) Dexcom G6 Recycling Operator Misc See Rx Instructions .Route Qty: 1 0RF Rx Instructions: As directed ([facility] [place]) Dexcom G6 Sensor Device See Rx Instructions .Route Qty: 3 4RF Rx Instructions: As directed ([facility] [place]) Dexcom G6 Transmitter Device See Rx Instructions .Route Qty: 1 4RF Rx Instructions: As directed metoprolol succinate 25 mg tablet extended release 24 hr See Rx Instructions .ROUTE .COMPLEX Qty: 180 0RF Dose Instruction: TAKE 1 TABLET TWICE DAILY Rx Instructions: TAKE 1 TABLET TWICE DAILY aspirin [Adult Low Dose Aspirin] 81 mg tablet,delayed release (DR/EC) 81 mg PO DAILY insulin glargine 100 unit/mL (3 mL) insulin pen 20 unit SUBCUT QPM Qty: 15 5RF pravastatin 20 mg tablet 20 mg PO BEDTIME Qty: 90 3RF celecoxib [Celebrex] 200 mg capsule 200 mg PO DAILY Qty: 30 2RF gabapentin 100 mg capsule 100 mg PO BEDTIME Qty: 60 2RF Rx Instructions: may increase to 2 po qhs mecobalamin (vitamin B12) PO DAILY Referrals: Miscellaneous,Doctor, MD [Primary Care Provider] - Stand Alone Forms: Patient Portal/API
[2024-03-20 13:58] LABS: Add Manual Diff / Slide Review NO; Basophils Absolute Auto 100 /uL (0-100); Basophils Percent Auto 0.7 % (0-2); Eosinophils Absolute Auto 100 /uL (0-450); Eosinophils Percent Auto 1.6 % (2-4); Hematocrit 38.1 % (36-46); Hemoglobin 12.9 g/dL (12.0-16.0); Lymphocytes Absolute Auto 1700 /uL (1100-4500); Lymphocytes Percent Auto 22.5 % (25-40); Mean Corpuscular HGB Conc 33.8 % (30-36); Mean Corpuscular Volume 97.7 fL (80-100); Monocytes Absolute Auto 500 /uL (0-900); Neutrophils Absolute Auto 5000 /uL (1500-7000); Neutrophils Percent Auto 68.2 % (50-75); Platelet Count 255 X10^3/uL (150-400); Red Cell Distribution Width 12.8 % (11.6-14.8); White Blood Cell Count 7.3 X10^3/uL (4.5-11.0)
[2024-03-20 14:03] LABS: BUN Creatinine Ratio 30.6 (6-22); Blood Urea Nitrogen 30 mg/dL (7-17); Calcium 9.3 mg/dL (8.4-10.2); Carbon Dioxide 29 mmol/L (22-32); Chloride 104 mmol/L (98-107); Estimated Glomerular Filt Rate 60 mL/min (>60); Glucose 234 mg/dL (80-110); HEMOLYSIS 66 (0-50); Potassium 4.4 mmol/L (3.4-5.1); Sodium 139 mmol/L (137-145)
== END 2024-03-20 16:34 | disposition home or self-care (01) ==
PROVIDERS: Emergency Provider Emergency Medicine
DX: T83.092A Other mechanical complication of nephrostomy catheter, initial encounter (principal); Z79.899 Other long term (current) drug therapy
CPT/HCPCS: 36415; 74176; 80048; 85025; 99284

== ENCOUNTER → 2024-04-12 09:44 | Outpatient (ROUT) | payer MEDICARE, OTHER, MEDICAID, SELFPAY ==
[2024-04-12 10:04] LABS: Ammonia (NH3) < 9 umol/L (9-30)
== END ==
PROVIDERS: Visit Provider Internal Medicine
DX: N13.2 Hydronephrosis with renal and ureteral calculous obstruction (principal)
CPT/HCPCS: 82140

== ENCOUNTER → 2024-08-10 15:16 | Outpatient (ROUT) | payer MEDICARE, OTHER, MEDICAID, SELFPAY ==
[2024-08-10 16:08] LABS: Bilirubin Urine UA NEGATIVE (NEGATIVE); Color Urine UA YELLOW; Glucose Urine UA NEGATIVE (Negative); Ketones Urine UA NEGATIVE (NEGATIVE); Nitrite Urine UA NEGATIVE (Negative); Occult Blood Urine UA 3+ (Negative); Protein Urine UA 1+ (Negative); Specific Gravity Urine UA 1.015 (1.000-1.035); Urobilinogen Urine UA 0.2 E.U./dL (0.2)
[2024-08-10 16:10] LABS: Leukocyte Esterase Urine UA 4+ (NEGATIVE)
[2024-08-10 16:11] LABS: Appearance Urine UA TURBID
[2024-08-10 16:14] LABS: Bacteria Urine Many (>30); Culture Indicated Urine Specimen Cultured; RBC Urine 30-100/HPF (0-5/HPF); Squamous Epithelial Cell Urine None Seen (0-5/HPF); Urine Volume 10mL (spun); WBC Urine 30-100/HPF (0-5/HPF)
== END ==
PROVIDERS: Visit Provider Registered Nurse
DX: N39.0 Urinary tract infection, site not specified (principal)
CPT/HCPCS: 81001; 87077; 87086

== ENCOUNTER 2024-12-04 19:09 | Emergency (ER) | payer MEDICARE, OTHER, MEDICAID, SELFPAY ==
[2024-12-04] VITALS (36 sets, daily range): BP systolic 86–200; BP diastolic 50–105; PULSE 65–99; RESP 14–56; TEMP 37.2–38; O2SAT 84–99
--- NOTE | 2024-12-04 19:10 | DI.CT.S_ITS ---
PROCEDURE: CT STROKE INDICATIONS: code stroke TECHNIQUE: Noncontrast 4.5 mm thick angled axial sections acquired from the foramen magnum to the vertex, with coronal reformats. For radiation dose reduction, the following was used: automated exposure control, adjustment of mA and/or kV according to patient size. COMPARISON: None. FINDINGS: Image quality: Diagnostic. CSF spaces: Basal cisterns are patent. No extra-axial fluid collections. The ventricles are symmetric in size and shape. Brain: No intracranial bleeds or masses. There is cerebral volume loss for age, with resultant ventricular and sulcal prominence. There are periventricular and deep white matter chronic small vessel ischemic changes. There is intracranial internal carotid artery atherosclerosis. Remote left MCA territory infarct, with encephalomalacia/gliosis. Skull and face: Calvarium and visualized facial bones appear intact, without suspicious lesions. Sinuses: Visualized sinuses and mastoids are clear. IMPRESSION: No acute intracranial pathology. Findings discussed with Dr. Walsh at 7:23 p.m. On 12/04/2024. This study fulfills neurological imaging criteria for inclusion or exclusion of acute stroke therapies based on available published neurological guidelines. Dictated by: Oliver Self M.D. on 12/04/2024 at 19:23 Approved by: Oliver Self M.D. on 12/04/2024 at 19:24
--- NOTE | 2024-12-04 19:10 | DI.CT.S_ITS ---
PROCEDURE: CT ANGIO HEAD AND NECK INDICATIONS: code stroke TECHNIQUE: After the administration of intravenous contrast, 1 mm thick sections acquired from the aortic arch through the [place]. 3-dimensional uhiqxau-tvgprrfce-ybbgnobxwb (MIP) and/or volume rendering reformats were acquired of the central intracranial vasculature and neck separately. For radiation dose reduction, the following was used: automated exposure control, adjustment of mA and/or kV according to patient size. COMPARISON: None. FINDINGS: Image quality: Diagnostic. BRAIN: Please refer to same day CT of the head. HEAD CT ANGIOGRAPHY: Anterior circulation: Intracranial internal carotid arteries are normal in size and flow with atherosclerotic calcifications. The flow within the paired anterior cerebral arteries is normal and symmetric. The flow within the middle cerebral arteries is normal and symmetric. The anterior communicating artery is seen. No aneurysms are seen. Posterior circulation: Visualized portions of the vertebral arteries demonstrate normal caliber, and join to form a normal appearing basilar artery. Flow within the posterior cerebral arteries is normal and symmetric. No aneurysms are seen. NECK CT ANGIOGRAPHY: Carotid system: The great vessels demonstrate a conventional anatomy as they arise from the aortic arch. The origins of the common carotid arteries appear patent. The common carotid arteries demonstrate normal caliber and courses. The bifurcation regions demonstrate atherosclerotic disease with mild stenosis on the right, less than 50 percent and no significant stenosis on the left. The internal carotid arteries demonstrate normal calibers and tortuous and retropharyngeal courses. Mildly dilated main pulmonary artery measuring 3.4 centimeters Posterior circulation: The origins of the vertebral arteries both appear widely patent. The more superior extracranial portions of both vertebral arteries also demonstrate normal courses and calibers. They join to form a normal appearing basilar artery. Soft tissues: Visualized neck soft tissues demonstrate no suspicious abnormalities. Bones: No suspicious bony lesions. Visualized cervical spine appears normally aligned. Multilevel degenerative changes of the spine. IMPRESSION: No significant intracranial arterial abnormality is seen. No significant abnormality is seen within the arteries of the neck. Any quantitative measurements of stenosis were performed using NASCET criteria. Dictated by: Mateo Horton M.D. on 12/04/2024 at 19:54 Approved by: Mateo Horton M.D. on 12/04/2024 at 20:00
--- NOTE | 2024-12-04 19:27 | DI.RAD.S_ITS ---
PROCEDURE: XR CHEST 1V INDICATIONS: chest pain TECHNIQUE: One view of the chest was acquired. COMPARISON: [facility], CR, XR CHEST 2V, 01/13/2020, 21:02. FINDINGS: Surgical changes and devices: Enteric tube tip projects 2.9 cm above the lonny. Lungs and pleura: Low lung volumes left basilar streaky opacity.. No pleural effusions or pneumothorax. Mediastinum: Mediastinal contours appear normal. Heart size is normal. Aortic arch is calcified indicating atherosclerosis. Bones and chest wall: No suspicious bony lesions. Overlying soft tissues appear unremarkable. IMPRESSION: Enteric tube tip projects 2.9 cm above the lonny. Low lung volumes with left basilar streaky opacity, favored to be atelectasis. Approved by: Ingrid Valencia M.D.,Ph.D. on 12/04/2024 at 20:40
--- NOTE | 2024-12-04 19:41 | ED_ITS ---
HPI - General Adult General Chief complaint: Neuro Symptoms/Deficit Stated complaint: Code Stroke Time Seen by Provider: 12/04/24 19:10 History of Present Illness HPI narrative: 79-year-old female with history of previous stroke but apparently without neurologic sequelae, chronic Eliquis anticoagulation, resident at nearby [facility] facility, facility members saw her proximally 6:45 p.m. last known well, return 1909 to give her night meds but she seemed to be unresponsive, EMS called, she was able to squeeze with the right hand but otherwise seemed quite nonresponsive, unclear if they checked glucose, transport by EMS, non-rebreather mask, systolic blood pressure initially 70 but then improved to 100 on arrival here without specific treatment. Code stroke called, went to imaging straight after arrival. Related Data Home Medications Medication Instructions Recorded Confirmed mecobalamin (vitamin B12) PO DAILY 07/04/19 01/27/22 aspirin 81 mg tablet,delayed 81 mg PO DAILY 03/04/21 01/27/22 release (Adult Low Dose Aspirin) Previous Rx's Medication Instructions Recorded albuterol sulfate 2.5 mg/3 mL 3 ml INH X1 PRN ##1 05/03/17 (0.083 %) solution for nebulization albuterol sulfate 90 mcg/actuation 1 puff INH Q4HP PRN ##8 05/03/17 aerosol inhaler (Ventolin HFA) inhalational spacing device ##1 05/03/17 (Vortex Holding Chamber) blood sugar diagnostic (Blood #100 ea 05/27/21 Glucose Test strips) fluticasone propionate 50 1 spray intranasal DAILY #3 ea 07/21/21 mcg/actuation nasal spray,suspension insulin aspart U-100 100 unit/mL 5 unit (0.05 mL) SUBCUT TID Dose 08/11/21 (3 mL) subcutaneous pen (Novolog change #15 mL FlexPen U-100 Insulin aspart) alcohol swabs (Alcohol Prep Pads) 1 pad topical QID USE TO CLEAN 11/14/21 SKIN BEFORE BLOOD GLUCOSE TESTING. #100 ea chlorthalidone 25 mg tablet See Rx Instructions .Route 12/15/21 .COMPLEX #90 tabs furosemide 20 mg tablet 20 mg PO DAILY #90 tabs 12/15/21 losartan 25 mg tablet 25 mg PO QDAY #90 tabs 12/15/21 pioglitazone 30 mg tablet See Rx Instructions .Route 12/15/21 .COMPLEX #90 tabs blood sugar diagnostic (Blood #90 ea 01/19/22 Glucose Test strips) blood-glucose meter #1 ea 01/19/22 lancets 30 gauge (Easy Touch #200 ea 01/19/22 Safety Lancets) celecoxib 200 mg capsule (Celebrex) 200 mg PO DAILY #30 caps 01/27/22 gabapentin 100 mg capsule 100 mg PO BEDTIME #60 caps 01/27/22 insulin glargine 100 unit/mL (3 20 unit (0.2 mL) SUBCUT QPM #15 mL 01/27/22 mL) subcutaneous pen pravastatin 20 mg tablet 20 mg PO BEDTIME #90 tabs 01/27/22 blood-glucose meter,continuous #1 ea 02/06/22 (Dexcom G6 Mold Filler Plastic Dolls) blood-glucose sensor (Dexcom G6 #3 ea 02/06/22 Sensor device) blood-glucose transmitter (Dexcom #1 ea 02/06/22 G6 Transmitter device) metoprolol succinate 25 mg See Rx Instructions .Route 09/30/22 tablet,extended release 24 hr .COMPLEX #180 tabs Allergies Allergy/AdvReac Type Severity Reaction Status Date / Time amphetamine [AMPHETAMINE] Allergy Mild ELEVATED BP Verified 05/27/21 15:22 fentanyl [FENTANYL] Allergy Mild Verified 05/27/21 15:22 fluoxetine [FLUOXETINE] Allergy Mild Verified 05/27/21 15:22 hydrocodone [HYDROCODONE] Allergy Mild Verified 05/27/21 15:22 theophylline [THEOPHYLLINE] Allergy Mild Verified 05/27/21 15:22 diphenhydramine Allergy Unknown Verified 05/27/21 15:22 lisinopril Allergy Unknown cough Verified 05/27/21 15:22 metformin Allergy Unknown pain, Verified 05/27/21 15:22 diarrhea oxycodone Allergy Unknown Verified 05/27/21 15:22 phenylpropanolamine Allergy Unknown tachycardia, Verified 05/27/21 15:22 HTN Petroleum Liquids Products Allergy Unknown swelling, Uncoded 05/27/21 15:22 wells Propellant used with some Allergy Unknown Uncoded 05/27/21 15:22 Albuterol Patient History Medical History Hyperlipemia Alopecia areata Cognitive impairment Chronic Kidney Disease Type 2 diabetes mellitus with other diabetic neurological complication Atrophic vaginitis Cholecystectomy planned Social History Smoking Status: Never smoker Smoking Status: Never smoker Exam Narrative Exam Narrative: GENERAL: Well-developed patient, lethargic, wearing nonrebreather mask from EMS on arrival. HEAD: Atraumatic. Normocephalic. EYES: Pupils equal round and reactive. Extraocular motions intact. No scleral icterus. No injection or drainage. ENT: Nose without bleeding, purulent drainage. Throat without erythema, tonsillar hypertrophy or exudate. Airway patent. NECK: Trachea midline. Non tender CARDIOVASCULAR: Regular rate and rhythm without murmurs, gallops, or rubs. RESPIRATORY: Clear to auscultation. Breath sounds equal bilaterally. No wheezes, rales, or rhonchi. GASTROINTESTINAL: Obese, no wince on palpation anterior abdomen. EXTREMITIES: No edema or joint tenderness. NEURO: GCS [id number]. Patient opens eyes to voice only, had slow with very speech, was able to state her name but could/did not answer other questions. I could not get her to squeeze my hand either side, no withdrawal from either side, no postural changes. Pupils equal round and reactive, conjugate gaze straight looking ahead, but I could not get her to track or look to the side or up/down, unclear if she is able to see, did not answer. SKIN: No rash or erythema of visible areas Initial Vital Signs Initial Vital Signs: Vital Signs Pulse Rate 83 12/04/24 19:10 Respiratory Rate 26 H 12/04/24 19:10 Blood Pressure 104/50 L 12/04/24 19:10 Pulse Oximetry 99 12/04/24 19:10 Oxygen Delivery Method Non -Rebreather 12/04/24 19:10 Oxygen Flow Rate 15 12/04/24 19:10 Procedures Intubation Time of Intubation: 20:29 Time out performed: Yes sedative: Etomidate Mg Given: 20 paralytic: Rocuronium Mg Given: 100 Laryngoscope: fiber optic video scope ET Tube Size: 7.5 ET Tube Uncuffed: No Tube Secured Depth (cm): 24 Tube Secured Location: teeth Tube Placement Confirmation: Visualized tube passing through cords, Equal breath sounds bilaterally, Confirmation by capnometry and Chest Xray Patient Tolerated Procedure: Well Intubation Complications: none Course Orders Ordered: Discontinued Medications Chlorhexidine Gluconate (Chlorhexidine Gluconate 15 Ml Cup) 15 ml PO Q6HR MECHELLE Last Admin: 12/05/24 02:01 Dose: Not Given Documented By: VINOD Etomidate (Etomidate 2 Mg/Ml 10 Ml Vial) 20 mg IV NOW ONE Stop: 12/04/24 20:23 Last Admin: 12/04/24 20:11 Dose: 20 mg Documented By: VINOD Ceftriaxone Sodium 2,000 mg/ (Sodium Chloride) 100 mls @ 200 mls/hr IV NOW ONE Stop: 12/04/24 20:19 Last Infusion: 12/04/24 21:15 Dose: Infused Documented By: Admin: 12/04/24 20:45 Dose: 200 mls/hr Documented By: VINOD Propofol (Diprivan) 1,000 mg in 100 mls @ 3.465 mls/hr IV TITRATE MECHELLE Last Infusion: 12/05/24 01:59 Dose: 0 mcg/kg/min, 0 mls/hr Documented By: Infusion: 12/04/24 22:54 Dose: 10 mcg/kg/min, 6.93 mls/hr Documented By: Admin: 12/04/24 20:40 Dose: 5 mcg/kg/min, 3.465 mls/hr Documented By: VINOD NOREPINEPHRINE BITARTRATE/D5W (Levophed) 4 mg in 250 mls @ 43.313 mls/hr IV TITRATE MECHELLE; Protocol Last Titration: 12/05/24 02:00 Dose: Infused Documented By: Titration: 12/04/24 20:30 Dose: 0 mcg/kg/min, 0 mls/hr Documented By: Admin: 12/04/24 20:15 Dose: 0.1 mcg/kg/min, 43.313 mls/hr Documented By: VINOD Sodium Chloride (Normal Saline 0.9%) 1,000 mls @ 1,000 mls/hr IV BOLUS ONE Stop: 12/04/24 23:18 Last Infusion: 12/04/24 21:45 Dose: Infused Documented By: Admin: 12/04/24 20:10 Dose: 1,000 mls/hr Documented By: VINOD Sodium Chloride (Normal Saline 0.9%) 1,000 mls @ 250 mls/hr IV CONT MECHELLE Last Infusion: 12/05/24 00:42 Dose: Infused Documented By: Admin: 12/04/24 22:23 Dose: 250 mls/hr Documented By: VINOD Lactated Ringer's (Lactated Ringers) 1,000 mls @ 150 mls/hr IV CONT MECHELLE Last Infusion: 12/05/24 02:01 Dose: 0 mls/hr Documented By: Admin: 12/05/24 00:41 Dose: 150 mls/hr Documented By: VINOD Rocuronium [place] (Rocuronium 50 Mg/5 Ml Inj) 100 mg IV NOW ONE Stop: 12/04/24 20:24 Last Admin: 12/04/24 20:12 Dose: 100 mg Documented By: VINOD Vital Signs Vital signs: Vital Signs - 8 hr 12/04/24 19:10 12/04/24 20:00 12/04/24 20:05 Temperature Pulse Rate 83 85 82 Respiratory Rate 26 H 33 H 31 H Blood Pressure 104/50 L 104/58 L Pulse Oximetry 99 98 95 Oxygen Delivery Method Non -Rebreather Non -Rebreather Non -Rebreather Oxygen Flow Rate 15 15 15 Fraction of Inspired Oxygen 12/04/24 20:05 12/04/24 20:10 12/04/24 20:10 Temperature Pulse Rate 80 Respiratory Rate 48 H Blood Pressure 96/52 L 98/54 L Pulse Oximetry 84 L 86 L Oxygen Delivery Method Nasal Cannula Nasal Cannula Oxygen Flow Rate 5 5 Fraction of Inspired Oxygen 12/04/24 20:12 12/04/24 20:12 12/04/24 20:15 Temperature Pulse Rate 90 Respiratory Rate 26 H Blood Pressure 101/59 L 129/62 Pulse Oximetry 98 Oxygen Delivery Method Oxygen Flow Rate Fraction of Inspired Oxygen 12/04/24 20:15 12/04/24 20:20 12/04/24 20:20 Temperature Pulse Rate 91 H 83 Respiratory Rate 47 H 56 H Blood Pressure 135/61 Pulse Oximetry 98 98 Oxygen Delivery Method Mechanical Ventilation Oxygen Flow Rate Fraction of Inspired Oxygen 12/04/24 20:25 12/04/24 20:25 12/04/24 20:30 Temperature Pulse Rate 99 H 97 H Respiratory Rate 22 18 Blood Pressure 186/103 H Pulse Oximetry 98 97 Oxygen Delivery Method Oxygen Flow Rate Fraction of Inspired Oxygen 12/04/24 20:30 12/04/24 20:35 12/04/24 20:35 Temperature Pulse Rate 95 H Respiratory Rate 18 Blood Pressure 200/105 H 180/86 H Pulse Oximetry 98 Oxygen Delivery Method Oxygen Flow Rate Fraction of Inspired Oxygen 12/04/24 20:40 12/04/24 20:40 12/04/24 20:45 Temperature Pulse Rate 95 H Respiratory Rate 19 Blood Pressure 167/77 H 130/66 Pulse Oximetry 98 Oxygen Delivery Method Oxygen Flow Rate Fraction of Inspired Oxygen 12/04/24 20:45 12/04/24 20:50 12/04/24 20:50 Temperature Pulse Rate 93 H 93 H Respiratory Rate 26 H 16 Blood Pressure 126/60 Pulse Oximetry 98 97 Oxygen Delivery Method Oxygen Flow Rate Fraction of Inspired Oxygen 12/04/24 20:55 12/04/24 20:55 12/04/24 21:00 Temperature 99.7 F H Pulse Rate 90 Respiratory Rate 16 Blood Pressure 92/53 L 86/51 L Pulse Oximetry 97 Oxygen Delivery Method Oxygen Flow Rate Fraction of Inspired Oxygen 12/04/24 21:00 12/04/24 21:02 12/04/24 21:02 Temperature 100.0 F H 100.0 F H Pulse Rate 90 89 Respiratory Rate 16 16 Blood Pressure 90/50 L Pulse Oximetry 96 95 Oxygen Delivery Method Oxygen Flow Rate Fraction of Inspired Oxygen 12/04/24 21:05 12/04/24 21:05 12/04/24 21:10 Temperature 100.2 F H Pulse Rate 87 Respiratory Rate 16 Blood Pressure 90/51 L 99/58 L Pulse Oximetry 95 Oxygen Delivery Method Oxygen Flow Rate Fraction of Inspired Oxygen 12/04/24 21:10 12/04/24 21:15 12/04/24 21:15 Temperature 100.2 F H 100.4 F H Pulse Rate 90 86 Respiratory Rate 17 16 Blood Pressure 92/51 L Pulse Oximetry 95 95 Oxygen Delivery Method Oxygen Flow Rate Fraction of Inspired Oxygen 12/04/24 21:18 12/04/24 21:20 12/04/24 21:20 Temperature 100.4 F H Pulse Rate 86 Respiratory Rate 16 Blood Pressure 93/50 L Pulse Oximetry 94 Oxygen Delivery Method Oxygen Flow Rate Fraction of Inspired Oxygen 60 12/04/24 21:25 12/04/24 21:25 12/04/24 21:30 Temperature 100.4 F H 100.2 F H Pulse Rate 83 81 Respiratory Rate 16 16 Blood Pressure 93/50 L Pulse Oximetry 94 93 Oxygen Delivery Method Oxygen Flow Rate Fraction of Inspired Oxygen 12/04/24 21:30 12/04/24 21:35 12/04/24 21:35 Temperature 100.2 F H Pulse Rate 86 Respiratory Rate 17 Blood Pressure 87/54 L 101/56 L Pulse Oximetry 94 Oxygen Delivery Method Oxygen Flow Rate Fraction of Inspired Oxygen 12/04/24 21:40 12/04/24 21:40 12/04/24 21:45 Temperature 100.2 F H Pulse Rate 84 Respiratory Rate 16 Blood Pressure 102/58 L 103/55 L Pulse Oximetry 95 Oxygen Delivery Method Oxygen Flow Rate Fraction of Inspired Oxygen 12/04/24 21:45 12/04/24 21:50 12/04/24 21:50 Temperature 100.0 F H 100.0 F H Pulse Rate 85 84 Respiratory Rate 16 16 Blood Pressure 110/56 L Pulse Oximetry 94 94 Oxygen Delivery Method Oxygen Flow Rate Fraction of Inspired Oxygen 12/04/24 21:55 12/04/24 21:55 12/04/24 22:00 Temperature 100.0 F H 99.9 F H Pulse Rate 83 82 Respiratory Rate 16 16 Blood Pressure 110/57 L Pulse Oximetry 94 94 Oxygen Delivery Method Oxygen Flow Rate Fraction of Inspired Oxygen 12/04/24 22:00 12/04/24 22:05 12/04/24 22:05 Temperature 99.9 F H Pulse Rate 80 Respiratory Rate 16 Blood Pressure 109/57 L 101/51 L Pulse Oximetry 94 Oxygen Delivery Method Oxygen Flow Rate Fraction of Inspired Oxygen 12/04/24 22:10 12/04/24 22:10 12/04/24 22:15 Temperature 99.9 F H 99.9 F H Pulse Rate 75 76 Respiratory Rate 16 16 Blood Pressure 91/51 L Pulse Oximetry 93 93 Oxygen Delivery Method Oxygen Flow Rate Fraction of Inspired Oxygen 12/04/24 22:15 12/04/24 22:31 12/04/24 23:00 Temperature 99.7 F H Pulse Rate 72 Respiratory Rate 16 Blood Pressure 92/50 L 106/59 L Pulse Oximetry 94 Oxygen Delivery Method Oxygen Flow Rate Fraction of Inspired Oxygen 12/04/24 23:00 12/04/24 23:30 12/04/24 23:30 Temperature 99.3 F 99.0 F Pulse Rate 65 72 Respiratory Rate 16 16 Blood Pressure 111/68 Pulse Oximetry 95 94 Oxygen Delivery Method Mechanical Ventilation Oxygen Flow Rate Fraction of Inspired Oxygen Medical Decision Making Lab Data Lab results reviewed: Yes I reviewed the patient's lab results. Lab results narrative: White blood cell count 75115, hemoglobin 13.5, platelets adequate. BUN 49 with creatinine 3.74 noted, glucose 142. Sodium 138, potassium 4.1, serum CO2 30. Liver functions unremarkable. Lipase 80 normal. Alcohol level less than 10. 12/04/24 19:35 12/04/24 19:35 Labs: Lab Results 12/04/24 12/04/24 12/04/24 Range/Units 19:35 19:55 20:35 WBC 16.7 H (4.5-11.0) X10^3/uL RBC 4.14 (4.0-5.2) X10^6/uL Hgb 13.5 (12.0-16.0) g/dL Hct 41.8 (36-46) % MCV 100.9 H (80-100) fL MCH 32.6 (26-34) PG MCHC 32.3 (30-36) % RDW 13.3 (11.6-14.8) % Plt Count 200 (150-400) X10^3/uL Neut % (Auto) 92.3 H (50-75) % Lymph % (Auto) 1.3 L (25-40) % Person % (Auto) 6.2 (3-14) % Eos % (Auto) 0.0 L (2-4) % Baso % (Auto) 0.2 (0-2) % Neut # (Auto) 60467 H (4047-9787) /uL Lymph # (Auto) 200 L (6484-8087) /uL Person # (Auto) 1000 H (0-900) /uL Eos # (Auto) 0 (0-450) /uL Baso # (Auto) 0 (0-100) /uL ABG Sample Site ABG pH (7.35-7.45) ABG pCO2 (35-45) mmHg ABG pO2 (80-100) mmHg ABG HCO3 (23-27) mmol/L ABG Total CO2 (23-27) mmol/L ABG O2 Saturation (95-100) % ABG Base Excess (-2-3) mmol/L Dalton Test Respiration Rate O2 Delivery Device Mode of Support FiO2 % % PEEP or CPAP Sodium 138 (137-145) mmol/L Potassium 4.1 (3.4-5.1) mmol/L Chloride 101 (98-107) mmol/L Carbon Dioxide 30 (22-32) mmol/L BUN 49 H (7-17) mg/dL Creatinine 3.74 H (0.52-1.04) mg/dL Estimated GFR 12 L (>60) mL/min BUN/Creatinine Ratio 13.1 (6-22) Glucose 142 H (80-110) mg/dL Lactate 3.6 H (0.7-2.1) mmol/L Calcium 9.6 (8.4-10.2) mg/dL Total Bilirubin 0.7 (0.2-1.3) mg/dL AST 44 H (14-36) IU/L ALT 34 (<35) IU/L Alkaline Phosphatase 113 (38-126) U/L Total Creatine Kinase 138 H (30-135) U/L Troponin I 0.039 H (0.01-0.034) ng/mL Total Protein 7.3 (6.3-8.2) g/dL Albumin 3.7 (3.5-5.0) g/dL Globulin 3.6 (1.7-4.1) g/dL Albumin/Globulin Ratio 1.0 (1.0-2.8) Lipase 80 (23-300) U/L Urine Color Urine Appearance Urine pH (4.5-8.0) Ur Specific Flushing (1.000-1.035) Urine Protein (Negative) Urine Glucose (UA) (Negative) g/dL Urine Ketones (NEGATIVE) Urine Occult Blood (Negative) Urine Nitrate (Negative) Urine Bilirubin (NEGATIVE) Ur Bilirubin Confirm (Negative) Urine Urobilinogen (0.2) E.U./dL Ur Leukocyte Esterase (NEGATIVE) Urine RBC (0-5/HPF) Urine WBC (0-5/HPF) Ur Squamous Epith Cells (0-5/HPF) Urine Bacteria (None) Ur Culture Indicated? Vol Urine Centrifuged U Opiates 300ng/mL cut (Negative) Ur Oxycodone Screen (Negative) Urine Methadone Screen (Negative) Ur Barbiturates Screen (Negative) U Tricyclic Antidepress (Negative) Ur Phencyclidine Scrn (Negative) Ur Amphetamines Screen (Negative) U Methamphetamines Scrn (Negative) Ur MDMA Scrn (Ecstasy) (Negative) U Benzodiazepines Scrn (Negative) Urine Cocaine Screen (Negative) U Marijuana (THC) Screen (Negative) Urine Specific Flushing (Normal) Ethyl Alcohol < 10 ( - 10) mg/dL Ur Creatinine (Normal) A.calcoaceticus-baumannii cmplx PCR Not detected (Not Detect) Bacteroides fragilis Not detected (Not Detect) Mago albicans (PCR) Not detected (Not Detect) Mago auris (PCR) Not detected (Not Detect) C. glabrata (PCR) Not detected (Not Detect) C. krusei (PCR) Not detected (Not Detect) C. parapsilosis (PCR) Not detected (Not Detect) C. tropicalis (PCR) Not detected (Not Detect) SARS-CoV-2 (PCR) Negative (Negative) C. neoform/gattii (PCR) Not detected (Not Detect) Enterobacterales (PCR) Not detected (Not Detect) E. cloacae complex PCR Not detected (Not Detect) Enterococc faecalis PCR Not detected (Not Detect) Enterococc faecium PCR Not detected (Not Detect) E. coli (PCR) Not detected (Not Detect) H. influenzae (PCR) Not detected (Not Detect) Influenza A (RT-PCR) Flu a negative (NEGATIVE) Influenza B (RT-PCR) Flu b negative (NEGATIVE) Klebsiella aerogenes (PCR) Not detected (Not Detect) Klebsiella oxytoca PCR Not detected (Not Detect) Klebsiella pneumoniae Not detected (Not Detect) List. monocytogenes PCR Not detected (Not Detect) N. meningitidis (PCR) Not detected (Not Detect) Proteus species (PCR) Not detected (Not Detect) RSV (PCR) Negative (Negative) Salmonella spp. (PCR) Not detected (Not Detect) Serratia marcescens PCR Not detected (Not Detect) Staphylococcus sp PCR Detected (Not Detect) Staph aureus (PCR) Not detected (Not Detect) mecA/C & MREJ Resist Gene Not applicable (Not Detect) mecA/C-Methicil Resis Gene Not applicable (Not Detect) mcr-1 Colistin Res Gene PCR Not applicable (Not Detect) Staph epidermidis (PCR) Not detected (Not Detect) Staph lugdunensis PCR Not detected (Not Detect) S. maltophilia (PCR) Not detected (Not Detect) Streptococcus sp PCR Detected (Not Detect) Group A Strep (PCR) Not detected (Not Detect) Strep agalactiae (PCR) Not detected (Not Detect) Strep pneumoniae (PCR) Not detected (Not Detect) P. aeruginosa (PCR) Not detected (Not Detect) Lynn/B-Vanco Res Genes Not applicable (Not Detect) blaIMP Car res Gene PCR Not applicable (Not Detect) KPC-Carbap Res Gene PCR Not applicable (Not Detect) blaNDM Car Res Gene PCR Not applicable (Not Detect) OXA-48 Carbapenem Resis Gene (PCR) Not applicable (Not Detect) blaVIM Car Res Gene PCR Not applicable (Not Detect) CTX-M Gene Resistance (PCR) Not applicable (Not Detect) 12/04/24 12/04/24 12/04/24 Range/Units 20:45 20:45 21:31 WBC (4.5-11.0) X10^3/uL RBC (4.0-5.2) X10^6/uL Hgb (12.0-16.0) g/dL Hct (36-46) % MCV (80-100) fL MCH (26-34) PG MCHC (30-36) % RDW (11.6-14.8) % Plt Count (150-400) X10^3/uL Neut % (Auto) (50-75) % Lymph % (Auto) (25-40) % Person % (Auto) (3-14) % Eos % (Auto) (2-4) % Baso % (Auto) (0-2) % Neut # (Auto) (2997-1487) /uL Lymph # (Auto) (5825-8191) /uL Person # (Auto) (0-900) /uL Eos # (Auto) (0-450) /uL Baso # (Auto) (0-100) /uL ABG Sample Site Right radial ABG pH 7.35 (7.35-7.45) ABG pCO2 49.7 H (35-45) mmHg ABG pO2 82 (80-100) mmHg ABG HCO3 27 (23-27) mmol/L ABG Total CO2 27 (23-27) mmol/L ABG O2 Saturation 95 (95-100) % ABG Base Excess 0.8 (-2-3) mmol/L Dalton Test N/a Respiration Rate 16 O2 Delivery Device Adult ventilator Mode of Support Assist cont ventilat FiO2 % 60.0 % % PEEP or CPAP 5 Sodium (137-145) mmol/L Potassium (3.4-5.1) mmol/L Chloride (98-107) mmol/L Carbon Dioxide (22-32) mmol/L BUN (7-17) mg/dL Creatinine (0.52-1.04) mg/dL Estimated GFR (>60) mL/min BUN/Creatinine Ratio (6-22) Glucose (80-110) mg/dL Lactate (0.7-2.1) mmol/L Calcium (8.4-10.2) mg/dL Total Bilirubin (0.2-1.3) mg/dL AST (14-36) IU/L ALT (<35) IU/L Alkaline Phosphatase (38-126) U/L Total Creatine Kinase (30-135) U/L Troponin I (0.01-0.034) ng/mL Total Protein (6.3-8.2) g/dL Albumin (3.5-5.0) g/dL Globulin (1.7-4.1) g/dL Albumin/Globulin Ratio (1.0-2.8) Lipase (23-300) U/L Urine Color Dark yellow Urine Appearance Cloudy Urine pH 7.0 Normal (4.5-8.0) Ur Specific Flushing 1.020 (1.000-1.035) Urine Protein 2+ H (Negative) Urine Glucose (UA) Negative (Negative) g/dL Urine Ketones Trace H (NEGATIVE) Urine Occult Blood 3+ H (Negative) Urine Nitrate Negative (Negative) Urine Bilirubin 1+ H (NEGATIVE) Ur Bilirubin Confirm Negative (Negative) Urine Urobilinogen 1.0 (0.2) E.U./dL Ur Leukocyte Esterase 2+ H (NEGATIVE) Urine RBC 30-100/hpf H (0-5/HPF) Urine WBC 30-100/hpf H (0-5/HPF) Ur Squamous Epith Cells 1-5 /hpf (0-5/HPF) Urine Bacteria Many (>30) H (None) Ur Culture Indicated? Specimen cultured Vol Urine Centrifuged 10ml (spun) U Opiates 300ng/mL cut Negative (Negative) Ur Oxycodone Screen Negative (Negative) Urine Methadone Screen Negative (Negative) Ur Barbiturates Screen Negative (Negative) U Tricyclic Antidepress Negative (Negative) Ur Phencyclidine Scrn Negative (Negative) Ur Amphetamines Screen Negative (Negative) U Methamphetamines Scrn Negative (Negative) Ur MDMA Scrn (Ecstasy) Negative (Negative) U Benzodiazepines Scrn Negative (Negative) Urine Cocaine Screen Negative (Negative) U Marijuana (THC) Screen Negative (Negative) Urine Specific Flushing Normal (Normal) Ethyl Alcohol ( - 10) mg/dL Ur Creatinine Normal (Normal) A.calcoaceticus-baumannii cmplx PCR (Not Detect) Bacteroides fragilis (Not Detect) Mago albicans (PCR) (Not Detect) Mago auris (PCR) (Not Detect) C. glabrata (PCR) (Not Detect) C. krusei (PCR) (Not Detect) C. parapsilosis (PCR) (Not Detect) C. tropicalis (PCR) (Not Detect) SARS-CoV-2 (PCR) (Negative) C. neoform/gattii (PCR) (Not Detect) Enterobacterales (PCR) (Not Detect) E. cloacae complex PCR (Not Detect) Enterococc faecalis PCR (Not Detect) Enterococc faecium PCR (Not Detect) E. coli (PCR) (Not Detect) H. influenzae (PCR) (Not Detect) Influenza A (RT-PCR) (NEGATIVE) Influenza B (RT-PCR) (NEGATIVE) Klebsiella aerogenes (PCR) (Not Detect) Klebsiella oxytoca PCR (Not Detect) Klebsiella pneumoniae (Not Detect) List. monocytogenes PCR (Not Detect) N. meningitidis (PCR) (Not Detect) Proteus species (PCR) (Not Detect) RSV (PCR) (Negative) Salmonella spp. (PCR) (Not Detect) Serratia marcescens PCR (Not Detect) Staphylococcus sp PCR (Not Detect) Staph aureus (PCR) (Not Detect) mecA/C & MREJ Resist Gene (Not Detect) mecA/C-Methicil Resis Gene (Not Detect) mcr-1 Colistin Res Gene PCR (Not Detect) Staph epidermidis (PCR) (Not Detect) Staph lugdunensis PCR (Not Detect) S. maltophilia (PCR) (Not Detect) Streptococcus sp PCR (Not Detect) Group A Strep (PCR) (Not Detect) Strep agalactiae (PCR) (Not Detect) Strep pneumoniae (PCR) (Not Detect) P. aeruginosa (PCR) (Not Detect) Lynn/B-Vanco Res Genes (Not Detect) blaIMP Car res Gene PCR (Not Detect) KPC-Carbap Res Gene PCR (Not Detect) blaNDM Car Res Gene PCR (Not Detect) OXA-48 Carbapenem Resis Gene (PCR) (Not Detect) blaVIM Car Res Gene PCR (Not Detect) CTX-M Gene Resistance (PCR) (Not Detect) 12/04/24 Range/Units 21:42 WBC (4.5-11.0) X10^3/uL RBC (4.0-5.2) X10^6/uL Hgb (12.0-16.0) g/dL Hct (36-46) % MCV (80-100) fL MCH (26-34) PG MCHC (30-36) % RDW (11.6-14.8) % Plt Count (150-400) X10^3/uL Neut % (Auto) (50-75) % Lymph % (Auto) (25-40) % Person % (Auto) (3-14) % Eos % (Auto) (2-4) % Baso % (Auto) (0-2) % Neut # (Auto) (5127-9116) /uL Lymph # (Auto) (3615-9607) /uL Person # (Auto) (0-900) /uL Eos # (Auto) (0-450) /uL Baso # (Auto) (0-100) /uL ABG Sample Site ABG pH (7.35-7.45) ABG pCO2 (35-45) mmHg ABG pO2 (80-100) mmHg ABG HCO3 (23-27) mmol/L ABG Total CO2 (23-27) mmol/L ABG O2 Saturation (95-100) % ABG Base Excess (-2-3) mmol/L Dalton Test Respiration Rate O2 Delivery Device Mode of Support FiO2 % % PEEP or CPAP Sodium (137-145) mmol/L Potassium (3.4-5.1) mmol/L Chloride (98-107) mmol/L Carbon Dioxide (22-32) mmol/L BUN (7-17) mg/dL Creatinine (0.52-1.04) mg/dL Estimated GFR (>60) mL/min BUN/Creatinine Ratio (6-22) Glucose (80-110) mg/dL Lactate 2.2 H (0.7-2.1) mmol/L Calcium (8.4-10.2) mg/dL Total Bilirubin (0.2-1.3) mg/dL AST (14-36) IU/L ALT (<35) IU/L Alkaline Phosphatase (38-126) U/L Total Creatine Kinase (30-135) U/L Troponin I (0.01-0.034) ng/mL Total Protein (6.3-8.2) g/dL Albumin (3.5-5.0) g/dL Globulin (1.7-4.1) g/dL Albumin/Globulin Ratio (1.0-2.8) Lipase (23-300) U/L Urine Color Urine Appearance Urine pH (4.5-8.0) Ur Specific Flushing (1.000-1.035) Urine Protein (Negative) Urine Glucose (UA) (Negative) g/dL Urine Ketones (NEGATIVE) Urine Occult Blood (Negative) Urine Nitrate (Negative) Urine Bilirubin (NEGATIVE) Ur Bilirubin Confirm (Negative) Urine Urobilinogen (0.2) E.U./dL Ur Leukocyte Esterase (NEGATIVE) Urine RBC (0-5/HPF) Urine WBC (0-5/HPF) Ur Squamous Epith Cells (0-5/HPF) Urine Bacteria (None) Ur Culture Indicated? Vol Urine Centrifuged U Opiates 300ng/mL cut (Negative) Ur Oxycodone Screen (Negative) Urine Methadone Screen (Negative) Ur Barbiturates Screen (Negative) U Tricyclic Antidepress (Negative) Ur Phencyclidine Scrn (Negative) Ur Amphetamines Screen (Negative) U Methamphetamines Scrn (Negative) Ur MDMA Scrn (Ecstasy) (Negative) U Benzodiazepines Scrn (Negative) Urine Cocaine Screen (Negative) U Marijuana (THC) Screen (Negative) Urine Specific Flushing (Normal) Ethyl Alcohol ( - 10) mg/dL Ur Creatinine (Normal) A.calcoaceticus-baumannii cmplx PCR (Not Detect) Bacteroides fragilis (Not Detect) Mago albicans (PCR) (Not Detect) Mago auris (PCR) (Not Detect) C. glabrata (PCR) (Not Detect) C. krusei (PCR) (Not Detect) C. parapsilosis (PCR) (Not Detect) C. tropicalis (PCR) (Not Detect) SARS-CoV-2 (PCR) (Negative) C. neoform/gattii (PCR) (Not Detect) Enterobacterales (PCR) (Not Detect) E. cloacae complex PCR (Not Detect) Enterococc faecalis PCR (Not Detect) Enterococc faecium PCR (Not Detect) E. coli (PCR) (Not Detect) H. influenzae (PCR) (Not Detect) Influenza A (RT-PCR) (NEGATIVE) Influenza B (RT-PCR) (NEGATIVE) Klebsiella aerogenes (PCR) (Not Detect) Klebsiella oxytoca PCR (Not Detect) Klebsiella pneumoniae (Not Detect) List. monocytogenes PCR (Not Detect) N. meningitidis (PCR) (Not Detect) Proteus species (PCR) (Not Detect) RSV (PCR) (Negative) Salmonella spp. (PCR) (Not Detect) Serratia marcescens PCR (Not Detect) Staphylococcus sp PCR (Not Detect) Staph aureus (PCR) (Not Detect) mecA/C & MREJ Resist Gene (Not Detect) mecA/C-Methicil Resis Gene (Not Detect) mcr-1 Colistin Res Gene PCR (Not Detect) Staph epidermidis (PCR) (Not Detect) Staph lugdunensis PCR (Not Detect) S. maltophilia (PCR) (Not Detect) Streptococcus sp PCR (Not Detect) Group A Strep (PCR) (Not Detect) Strep agalactiae (PCR) (Not Detect) Strep pneumoniae (PCR) (Not Detect) P. aeruginosa (PCR) (Not Detect) Lynn/B-Vanco Res Genes (Not Detect) blaIMP Car res Gene PCR (Not Detect) KPC-Carbap Res Gene PCR (Not Detect) blaNDM Car Res Gene PCR (Not Detect) OXA-48 Carbapenem Resis Gene (PCR) (Not Detect) blaVIM Car Res Gene PCR (Not Detect) CTX-M Gene Resistance (PCR) (Not Detect) Point of Care Testing Glucose POC 165 Point of care testing: Point of Care Testing Glucose POC 165 Imaging Data CTA - brain/neck: Radiologist's Impression: [address] [address] [address] Scan Report Signed Patient: Carlitos Abdullahi MR#: [id number] : 1945 Acct:[id number] Age/Sex: 79 / F Date of Service: 12/04/24 Loc: ED Accession Number: [id number] Procedure: CT angio head and neck Ordering Provider: Terri Walsh D.O. PROCEDURE: CT ANGIO HEAD AND NECK INDICATIONS: code stroke TECHNIQUE: After the administration of intravenous contrast, 1 mm thick sections acquired from the aortic arch through the [place]. 3-dimensional knqxvuz-nvyydzway-hpnddzomgj (MIP) and/or volume rendering reformats were acquired of the central intracranial vasculature and neck separately. For radiation dose reduction, the following was used: automated exposure control, adjustment of mA and/or kV according to patient size. COMPARISON: None. FINDINGS: Image quality: Diagnostic. BRAIN: Please refer to same day CT of the head. HEAD CT ANGIOGRAPHY: Anterior circulation: Intracranial internal carotid arteries are normal in size and flow with atherosclerotic calcifications. The flow within the paired anterior cerebral arteries is normal and symmetric. The flow within the middle cerebral arteries is normal and symmetric. The anterior communicating artery is seen. No aneurysms are seen. Posterior circulation: Visualized portions of the vertebral arteries demonstrate normal caliber, and join to form a normal appearing basilar artery. Flow within the posterior cerebral arteries is normal and symmetric. No aneurysms are seen. NECK CT ANGIOGRAPHY: Carotid system: The great vessels demonstrate a conventional anatomy as they arise from the aortic arch. The origins of the common carotid arteries appear patent. The common carotid arteries demonstrate normal caliber and courses. The bifurcation regions demonstrate atherosclerotic disease with mild stenosis on the right, less than 50 percent and no significant stenosis on the left. The internal carotid arteries demonstrate normal calibers and tortuous and retropharyngeal courses. Mildly dilated main pulmonary artery measuring 3.4 centimeters Posterior circulation: The origins of the vertebral arteries both appear widely patent. The more superior extracranial portions of both vertebral arteries also demonstrate normal courses and calibers. They join to form a normal appearing basilar artery. Soft tissues: Visualized neck soft tissues demonstrate no suspicious abnormalities. Bones: No suspicious bony lesions. Visualized cervical spine appears normally aligned. Multilevel degenerative changes of the spine. IMPRESSION: No significant intracranial arterial abnormality is seen. No significant abnormality is seen within the arteries of the neck. Any quantitative measurements of stenosis were performed using NASCET criteria. Dictated by: Mateo Horton M.D. on 12/04/2024 at 19:54 Approved by: Mateo Horton M.D. on 12/04/2024 at 20:00 CT scan - head: Radiologist's Impression: [address] [address] [address] Scan Report Signed Patient: Carlitos Abdullahi MR#: [id number] : 1945 Acct:[id number] Age/Sex: 79 / F Date of Service: 12/04/24 Loc: ED Accession Number: [id number] Procedure: CT Stroke Ordering Provider: Terri Walsh D.O. PROCEDURE: CT STROKE INDICATIONS: code stroke TECHNIQUE: Noncontrast 4.5 mm thick angled axial sections acquired from the foramen magnum to the vertex, with coronal reformats. For radiation dose reduction, the following was used: automated exposure control, adjustment of mA and/or kV according to patient size. COMPARISON: None. FINDINGS: Image quality: Diagnostic. CSF spaces: Basal cisterns are patent. No extra-axial fluid collections. The ventricles are symmetric in size and shape. Brain: No intracranial bleeds or masses. There is cerebral volume loss for age, with resultant ventricular and sulcal prominence. There are periventricular and deep white matter chronic small vessel ischemic changes. There is intracranial internal carotid artery atherosclerosis. Remote left MCA territory infarct, with encephalomalacia/gliosis. Skull and face: Calvarium and visualized facial bones appear intact, without suspicious lesions. Sinuses: Visualized sinuses and mastoids are clear. IMPRESSION: No acute intracranial pathology. Findings discussed with Dr. Walsh at 7:23 p.m. On 12/04/2024. This study fulfills neurological imaging criteria for inclusion or exclusion of acute stroke therapies based on available published neurological guidelines. Dictated by: Oliver Self M.D. on 12/04/2024 at 19:23 Approved by: Oliver Self M.D. on 12/04/2024 at 19:24 ECG Data Attestation: I personally reviewed and interpreted this ECG as follows: Interpretation: Normal sinus rhythm with rate of 84, no obvious ST segment elevation or depression changes. Some movement artifact in anterior leads. HI interval 178, QRS 90, QTC 451. MDM Narrative Medical decision making narrative: 79-year-old female intermediate resident with history of prior stroke without apparent neurologic sequelae, on chronic Eliquis anticoagulation per intermediate medication list, at 6:45 p.m. last known well at the facility, nursing returned 7:10 p.m. to give her nighttime meds but she was unresponsive, EMS called, patient was decrease in her mental status, had right coil former but little other interaction, blood pressure 70, low sats room air 70-80%, transported on non-rebreather oxygen mask, blood pressure improved on arrival, sent to CT code stroke imaging on arrival to the emergency department. POLST from intermediate indicates full code status. CT head no acute changes. CT head and neck vessel still pending. On arrival back into room patient has systolic blood pressure 105, minimally responsive, some withdrawal, 83-86%, weak gag, we will intubate for better oxygenation and airway control. POLST indicates that she is full code status from the intermediate. Attempted verbal consent for intubation, patient not responsive. No family present. Systolic blood pressure 90, map 68, peripheral norepinephrine started in case of blood pressure drop during/after RSI. See RSI procedure note, MAP improved prior to IV etomidate and rocuronium, 7.5 ET tube placed by glidescope single attempt through visualized cords, single attempt, tube tip depth 24 at teeth, balloon up, good breath sounds bilaterally, good color change capnometer. Good sats. Vent set-up per RT protocol at bedside. Chest x-ray post intubation shows good ET tube tip position above lonny, elevated right hemidiaphragm noted, no infiltrates aspiration changes, no pneumothorax, no fluid overload changes obvious. Systolic blood pressure 130 on low dose norepinephrine initiated pre-intubation, initial fluid bolus still running, will wean pressor as fluids infused, 2 L saline ordered. Propofol infusion post RSI ordered, to be titrated. Elevated white blood cell count 86999, lactate elevated 3.8, Peguero to be placed for urine collection, blood culture requested, IV ceftriaxone 2000 mg empiric 2029, discussed with [facility] neurology Dr Medel, who agrees with need for transfer to neuro capable facility but suspects patient may have more of a toxic/metabolic/sepsis picture, admit to medical ICU service advised. No beds [facility] per callback. Will initiate bed search. Last blood pressure 167/77, having weaned off norepinephrine, IV fluid infusion. Peguero being placed. We will obtain ABG. 2119, case discussed with [facility] medical solar[facility] administrator Dr. Copeland, refers to [place] neuro ICU. ABG results adeuate on initial vent settings, no vent adjustments for now. 2199, case discussed with [facility] neuro ICU doctor Azeem, who feels patient could be admitted at [facility] ICU. Await call back from [facility] system. Creat elelvated, potassium level okay. New ABIGAIL noted, will likely need nephrology consult at receiving facility. Accepted for transfer at [facility], bed available, we will arrange EMS transport 0030, EMS while arrive 3:00 a.m. for transportation, last blood pressure 112/62 transfer to [facility] as planned by ground ALS team Critical Care Time Critical Care Time Critical Care Time: Yes Total Critical Care Time: 45 Attestation: The high probability of a clinically significant, sudden or life threatening deterioration of the [neurologic, cerebrovascular, cardiopulmonary, genitourinary] system(s) required my full and direct attention, intervention and personal management. The aggregate critical care time was [45] minutes. This time is in addition to time spent performing reported procedures but includes the following: [x] Data Review and interpretation [x] Patient assessment and monitoring of vital signs [x] Documentation [x] Medication orders and management Discharge Plan Departure Patient Disposition: [facility] Clinical Impression: Altered mental status, Chronic anticoagulation, History of stroke, Urinary tract infection, ABIGAIL (acute kidney injury), Hypoxia Prescriptions: No Action albuterol sulfate 2.5 MG/3 ML solution for nebulization 3 ml INH X1 PRNQty: 1 0RF albuterol sulfate [Ventolin HFA] 90 MCG/PUFF HFA aerosol inhaler 1 puff INH Q4HP PRNQty: 8 PRNRF (DME) inhalational spacing device [Vortex Holding Chamber] 1 EACH spacer 1 ea MC X1 Qty: 1 0RF (DME) Blood Glucose Test Strip See Rx Instructions .Route Qty: 100 5RF Rx Instructions: Use to check blood sugar three times daily. fluticasone propionate 50 mcg/actuation spray,suspension 1 spray intranasal DAILY Qty: 3 1RF Rx Instructions: administer into each nostril insulin aspart U-100 [Novolog FlexPen U-100 Insulin] 100 unit/mL (3 mL) insulin pen 5 unit SUBCUT TID Qty: 15 3RF Rx Instructions: Three times daily before meals plus sliding scale. 200-250 add 2 units. 250- 300 add 3 units. 300-350 add 4 units. 350-400 add 5 units. 400-500 add 6 units. alcohol swabs [Alcohol Prep Pads] Pads, Medicated 1 pad topical QID Qty: 100 0RF pioglitazone 30 mg tablet See Rx Instructions .ROUTE .COMPLEX Qty: 90 1RF Dose Instruction: TAKE 1 TABLET EVERY DAY Rx Instructions: TAKE 1 TABLET EVERY DAY chlorthalidone 25 mg tablet See Rx Instructions .ROUTE .COMPLEX Qty: 90 1RF Dose Instruction: TAKE 1 TABLET EVERY DAY Rx Instructions: TAKE 1 TABLET EVERY DAY furosemide 20 mg tablet 20 mg PO DAILY Qty: 90 1RF losartan 25 mg tablet 25 mg PO QDAY Qty: 90 1RF Rx Instructions: Bridge rx while waiting for mail order rx. (DME) blood-glucose meter Kit See Rx Instructions .Route Qty: 1 0RF Rx Instructions: Check blood glucose TID before meals (DME) Blood Glucose Test Strip See Rx Instructions .Route Qty: 90 3RF Rx Instructions: Check blood glucose TID before meals (DME) lancets [Easy Touch Safety Lancets] 30 gauge misc See Rx Instructions .Route Qty: 200 3RF Rx Instructions: Check blood glucose TID before meals (DME) Dexcom G6 Mold Filler Plastic Dolls Misc See Rx Instructions .Route Qty: 1 0RF Rx Instructions: As directed ([facility]) Dexcom G6 Sensor Device See Rx Instructions .Route Qty: 3 4RF Rx Instructions: As directed ([facility]) Dexcom G6 Transmitter Device See Rx Instructions .Route Qty: 1 4RF Rx Instructions: As directed metoprolol succinate 25 mg tablet extended release 24 hr See Rx Instructions .ROUTE .COMPLEX Qty: 180 0RF Dose Instruction: TAKE 1 TABLET TWICE DAILY Rx Instructions: TAKE 1 TABLET TWICE DAILY aspirin [Adult Low Dose Aspirin] 81 mg tablet,delayed release (DR/EC) 81 mg PO DAILY insulin glargine 100 unit/mL (3 mL) insulin pen 20 unit SUBCUT QPM Qty: 15 5RF pravastatin 20 mg tablet 20 mg PO BEDTIME Qty: 90 3RF celecoxib [Celebrex] 200 mg capsule 200 mg PO DAILY Qty: 30 2RF gabapentin 100 mg capsule 100 mg PO BEDTIME Qty: 60 2RF Rx Instructions: may increase to 2 po qhs mecobalamin (vitamin B12) PO DAILY Referrals: Miscellaneous,Doctor, MD [Primary Care Provider] -
--- NOTE | 2024-12-04 19:45 | EKG_ITS ---
[facility] [address] [place] [address] Test Date: 2024-12-04 Pat Name: Carlitos Abdullahi Department: Room: Gender: Female Employment Interviewer: ANUSHKA : 1945 Requested By: Order Number: [id number] Reading MD: Joel Ortega Measurements Intervals [place] Rate: 84 P: 62 CT: 178 QRS: 58 QRSD: 90 T: 57 QT: 382 QTc: 451 Interpretive Statements Normal sinus rhythm Possible Left atrial enlargement Nonspecific ST and T wave abnormality Electronically Signed On 12-07-2024 20:02:24 PST by Joel Ortega
[2024-12-04 20:05] LABS: Add Manual Diff / Slide Review NO; Basophils Absolute Auto 0 /uL (0-100); Basophils Percent Auto 0.2 % (0-2); Eosinophils Absolute Auto 0 /uL (0-450); Hematocrit 41.8 % (36-46); Hemoglobin 13.5 g/dL (12.0-16.0); Lymphocytes Absolute Auto 200 /uL (1100-4500); Lymphocytes Percent Auto 1.3 % (25-40); Mean Corpuscular HGB Conc 32.3 % (30-36); Mean Corpuscular Hemoglobin 32.6 PG (26-34); Mean Corpuscular Volume 100.9 fL (80-100); Monocytes Absolute Auto 1000 /uL (0-900); Monocytes Percent Auto 6.2 % (3-14); Neutrophils Absolute Auto 15400 /uL (1500-7000); Neutrophils Percent Auto 92.3 % (50-75); Platelet Count 200 X10^3/uL (150-400); Red Blood Cell Count 4.14 X10^6/uL (4.0-5.2); Red Cell Distribution Width 13.3 % (11.6-14.8); White Blood Cell Count 16.7 X10^3/uL (4.5-11.0)
--- NOTE | 2024-12-04 20:05 | PC.NURSE ---
pt to Rm 1 per stretcher changed from NRB to NC per RT
[2024-12-04 20:10] LABS: Alanine Aminotransferase 34 IU/L (<35); Albumin 3.7 g/dL (3.5-5.0); Alkaline Phosphatase 113 U/L (38-126); Aspartate Aminotransferase 44 IU/L (14-36); BUN Creatinine Ratio 13.1 (6-22); Bilirubin Total 0.7 mg/dL (0.2-1.3); Blood Urea Nitrogen 49 mg/dL (7-17); Calcium 9.6 mg/dL (8.4-10.2); Carbon Dioxide 30 mmol/L (22-32); Chloride 101 mmol/L (98-107); Creatine Kinase 138 U/L (30-135); Estimated Glomerular Filt Rate 12 mL/min (>60); Ethanol (ETOH) < 10 mg/dL; Globulin 3.6 g/dL (1.7-4.1); Glucose 142 mg/dL (80-110); HEMOLYSIS < 15 (0-50); Lipase 80 U/L (23-300); Potassium 4.1 mmol/L (3.4-5.1); Sodium 138 mmol/L (137-145); Total Protein 7.3 g/dL (6.3-8.2)
[2024-12-04] MEDS: SODIUM CHLORIDE 0.9% 1,000 ML 1000 ML IV (20:10)
[2024-12-04 20:11] LABS: Lactate (Lactic Acid) 3.6 mmol/L (0.7-2.1)
[2024-12-04] MEDS: ETOMIDATE 2 MG/ML 10 ML VIAL 20 MG IV (20:11)
[2024-12-04] MEDS: ROCURONIUM 50 MG/5 ML INJ 100 MG IV (20:12)
--- NOTE | 2024-12-04 20:13 | PC.NURSE ---
pt intubated with 7.5 ET tube using the glidescope and secured at 24 cm at the teeth, BBS + epigastric sounds neg, CO2 color change +,
[2024-12-04] MEDS: NOREPINEPHRINE BITARTRATE/D5W 4 MG/250 ML PLAST..BAG 43.313 MG IV (20:15)
--- NOTE | 2024-12-04 20:15 | PC.NURSE ---
Addendum entered by Luda Mcfarland R.N. 12/04/24 22:17: this took place at 2009 just prior to intubation Original Note: unable to perform NIH, pt will respond to name but is confused to place or time, when asked if she can open eyes responds with no, when asked to move limbs responds with no, when asked if she can feel touch on the limbs she responds with yes but can not answer as to which limb, pt does have a gag reflex but can not maintain adequate airway, O2 sats dropping into the 80s on nasal cannula Dr Andino informed and in room to evaluate pt, with the decision to intubate made
[2024-12-04 20:21] LABS: Troponin I 0.039 ng/mL (0.01-0.034)
[2024-12-04 20:39] LABS: Influenza A - CEPHEID Flu A NEGATIVE (NEGATIVE); Influenza B - CEPHEID Flu B NEGATIVE (NEGATIVE); Respiratory Syncytial Virus Negative (Negative)
[2024-12-04] MEDS: propofoL 1,000 MG/100 ML VIAL 3.465 MG IV (20:40)
[2024-12-04 20:42] LABS: COVID-19 CEPHEID 4-PLEX PCR Negative (Negative)
[2024-12-04] MEDS: cefTRIAXone 2,000 MG in SODIUM CHLORIDE 0.9% 100 ML 200 MG IV (20:45)
[2024-12-04 20:53] LABS: Appearance Urine UA CLOUDY; Bilirubin Urine UA 1+ (NEGATIVE); Glucose Urine UA NEGATIVE (Negative); Ketones Urine UA TRACE (NEGATIVE); Leukocyte Esterase Urine UA 2+ (NEGATIVE); Nitrite Urine UA NEGATIVE (Negative); Occult Blood Urine UA 3+ (Negative); Protein Urine UA 2+ (Negative)
[2024-12-04 20:55] LABS: Color Urine UA Dark Yellow
[2024-12-04 20:56] LABS: UR Morphine/Opiate cutoff 300 Negative (Negative); Ur Creatinine Normal (Normal); Ur Specific Gravity Normal (Normal); Urine Amphetamines Negative (Negative); Urine Barbiturates Negative (Negative); Urine Benzodiazepines Negative (Negative); Urine Cocaine Negative (Negative); Urine MDMA Negative (Negative); Urine Methadone Negative (Negative); Urine Methamphetamines Negative (Negative); Urine Oxycodone Negative (Negative); Urine Phencyclidine Negative (Negative); Urine Tetrahydrocannabinol Negative (Negative); Urine Tricyclic Antidepressant Negative (Negative); Urine pH Normal (Normal)
[2024-12-04 21:00] LABS: Bacteria Urine Many (>30); Culture Indicated Urine Specimen Cultured; Ictotest Urine Negative (Negative); RBC Urine 30-100/HPF (0-5/HPF); Squamous Epithelial Cell Urine 1-5 /HPF (0-5/HPF); Urine Volume 10mL (spun); WBC Urine 30-100/HPF (0-5/HPF)
--- NOTE | 2024-12-04 21:26 | PC.NURSE ---
I spoke with care staff at [facility] ([phone]), they stated that pt is usually alert and oriented with a sharp wit. They said pt c/o not feeling well earlier in the day and they noticed some shakiness. They noted occasional confusion usually associated with UTI.
[2024-12-04 21:34] LABS: Reflexed Lactate in 2 Hours Y
[2024-12-04 21:36] LABS: Base Excess ABG 0.8 mmol/L (-2-3); Blood Gas Collection Site Right Radial; Blood Gas Mode Assist Cont Ventilat; Delivery System Adult Ventilator; HCO3 ABG 27 mmol/L (23-27); Oxygen Saturation ABG 95 % (95-100); PCO2 ABG 49.7 mmHg (35-45); PEEP 5; PO2 ABG 82 mmHg (80-100); Respiratory Rate 16; TCO2 ABG 27 mmol/L (23-27); pH ABG 7.35 (7.35-7.45)
[2024-12-04 22:01] LABS: Lactate 2HR (Lactic Acid Rflx) 2.2 mmol/L (0.7-2.1)
[2024-12-04] MEDS: SODIUM CHLORIDE 0.9% 1,000 ML 250 ML IV (22:23)
--- NOTE | 2024-12-04 23:29 | PC.NURSE ---
Addendum entered by Luda Mcfarland R.N. 12/05/24 01:22: pt moving right arm not left Original Note: pt starting to open eyes in response to verbal stimuli and move left arm
[2024-12-05] VITALS: BP 112/62; PULSE 69; RESP 16; TEMP 37; O2SAT 94
[2024-12-05 00:30] VITALS: BP 114/60; PULSE 69; RESP 16; TEMP 36.9; O2SAT 96
[2024-12-05] MEDS: LACTATED RINGERS 1,000 ML 150 ML IV (00:41)
[2024-12-05 01:00] VITALS: BP 109/58; PULSE 71; RESP 16; TEMP 36.8; O2SAT 96
[2024-12-05 01:30] VITALS: BP 116/63; PULSE 70; RESP 16; TEMP 36.8; O2SAT 96
[2024-12-05 01:33] VITALS: BP 116/63; PULSE 69; RESP 16; O2SAT 96
--- NOTE | 2024-12-05 02:02 | PC.NURSE ---
infusions continued during transport to [facility]
--- NOTE | 2024-12-05 02:02 | PC.NURSE ---
report given to CCT RN
--- NOTE | 2024-12-05 02:16 | PC.NURSE ---
[facility] ETA [address] [facility] [id number] Report [phone] Templeton
[2024-12-05 11:19] LABS: Acinetobacter calcoa-baumannii Not Detected (Not Detect); Bacteroides fragilis Not Detected (Not Detect); Candida albicans Not Detected (Not Detect); Candida auris Not Detected (Not Detect); Candida glabrata Not Detected (Not Detect); Candida krusei Not Detected (Not Detect); Candida parapsilosis Not Detected (Not Detect); Candida tropicalis Not Detected (Not Detect); Cryptococcus neoformans/gatti Not Detected (Not Detect); Enterobacter cloacae complex Not Detected (Not Detect); Enterobacterales Not Detected (Not Detect); Enterococcus faecalis Not Detected (Not Detect); Enterococcus faecium Not Detected (Not Detect); Haemophilus influenzae Not Detected (Not Detect); Klebsiella aerogenes Not Detected (Not Detect); Listeria monocytogenes Not Detected (Not Detect); Neisseria meningitidis Not Detected (Not Detect); Proteus species Not Detected (Not Detect); Pseudomonas aeruginosa Not Detected (Not Detect); Salmonella species Not Detected (Not Detect); Serratia marcescens Not Detected (Not Detect); Staphylococcus epidermidis Not Detected (Not Detect); Staphylococcus lugdunensis Not Detected (Not Detect); Staphylococcus species Detected (Not Detect); Stenotrophomonas maltophilia Not Detected (Not Detect); Streptococcus agalactiae (Gr B Not Detected (Not Detect); Streptococcus pneumonia Not Detected (Not Detect); Streptococcus pyogenes (Gr A) Not Detected (Not Detect); Streptococcus species Detected (Not Detect)
== END 2024-12-05 02:29 | disposition short-term general hospital (02) ==
PROVIDERS: Emergency Provider Emergency Medicine
DX: R41.82 Altered mental status, unspecified (principal); N39.0 Urinary tract infection, site not specified; N17.9 Acute kidney failure, unspecified; R09.02 Hypoxemia; E78.5 Hyperlipidemia, unspecified; E11.9 Type 2 diabetes mellitus without complications; Z79.4 Long term (current) use of insulin; Z79.01 Long term (current) use of anticoagulants; Z86.73 Personal history of transient ischemic attack (TIA), and cerebral infarction without residual deficits
CPT/HCPCS: 0241U; 31500; 36415; 36600; 70450; 70496; 70498; 71045; 80053; 80305; 80320; 81001; 82550; 82805; 82962; 83605; 83690; 84484; 85025; 87040; 87077; 87086; 87147; 87154; 87186; 93005; 94002; 94003; 94799; 96361; 96365; 96375; 99152; 99153; 99285; 99291; J0696; J2704; Q9967

== ENCOUNTER → 2025-03-27 22:15 | Outpatient (ROUT) | payer MEDICARE, OTHER, MEDICAID, SELFPAY ==
[2024-12-05 01:33] VITALS: PULSE 69; RESP 16; O2SAT 96
[2025-03-27 22:23] LABS: Bilirubin Urine UA NEGATIVE (NEGATIVE); Color Urine UA YELLOW; Glucose Urine UA 1+ g/dL (Negative); Ketones Urine UA NEGATIVE (NEGATIVE); Leukocyte Esterase Urine UA 3+ (NEGATIVE); Nitrite Urine UA NEGATIVE (Negative); Occult Blood Urine UA 2+ (Negative); Protein Urine UA TRACE (Negative); Specific Gravity Urine UA <=1.005 (1.000-1.035); Urobilinogen Urine UA 0.2 E.U./dL (0.2)
[2025-03-27 22:25] LABS: Appearance Urine UA SL CLOUDY; pH Urine UA 5.5 (4.5-8.0)
[2025-03-27 22:26] LABS: Urine Volume 10mL (spun)
[2025-03-27 22:29] LABS: Bacteria Urine Many (>30); Culture Indicated Urine Specimen Cultured; RBC Urine 0-1/HPF (0-5/HPF); Squamous Epithelial Cell Urine 1-5 /HPF (0-5/HPF); WBC Urine 30-100/HPF (0-5/HPF)
== END ==
PROVIDERS: Visit Provider Registered Nurse
DX: R35.0 Frequency of micturition (principal)
CPT/HCPCS: 81001; 87077; 87086; 87186

== ENCOUNTER → 2025-07-23 22:36 | Outpatient (ROUT) | payer MEDICARE, OTHER, MEDICAID, SELFPAY ==
[2024-12-05 01:33] VITALS: PULSE 69; RESP 16; O2SAT 96
[2025-07-23 22:42] LABS: Appearance Urine UA SL CLOUDY; Bilirubin Urine UA NEGATIVE (NEGATIVE); Color Urine UA RED; Glucose Urine UA TRACE g/dL (Negative); Ketones Urine UA NEGATIVE (NEGATIVE); Leukocyte Esterase Urine UA 2+ (NEGATIVE); Nitrite Urine UA POSITIVE (Negative); Occult Blood Urine UA 3+ (Negative); Protein Urine UA 2+ (Negative); Specific Gravity Urine UA 1.010 (1.000-1.035); Urobilinogen Urine UA 0.2 E.U./dL (0.2)
[2025-07-23 22:48] LABS: Culture Indicated Urine Specimen Cultured; pH Urine UA 7.0 (4.5-8.0)
== END ==
PROVIDERS: Visit Provider Registered Nurse
DX: N39.0 Urinary tract infection, site not specified (principal)
CPT/HCPCS: 81001; 87077; 87086; 87186

== ENCOUNTER 2025-09-16 07:22 | Emergency (ER) | payer MEDICARE, OTHER, MEDICAID, SELFPAY ==
[2024-12-05 01:33] VITALS: PULSE 69; RESP 16; O2SAT 96
[2025-09-16] VITALS (15 sets, daily range): BP systolic 127–169; BP diastolic 60–72; PULSE 72–80; RESP 16; TEMP 36.3–36.8; O2SAT 92–97
--- NOTE | 2025-09-16 07:33 | DI.CT.S_ITS ---
PROCEDURE: CT ABDOMEN PELVIS W CON
--- NOTE | 2025-09-16 07:33 | DI.US.S_ITS ---
PROCEDURE: US PELVIC COMPLETE
--- NOTE | 2025-09-16 07:35 | ED_ITS ---
HPI - General Adult
--- NOTE | 2025-09-16 07:35 | ED.GENADULT ---
HPI - General Adult General Chief complaint: Vaginal Bleeding Stated complaint: Vaginal Bleeding Time Seen by Provider: 09/16/25 07:33 History of Present Illness HPI narrative: 80 years old female with history of diabetes hypertension, dyslipidemia, DVT on Eliquis brought in by ambulance today for vaginal bleeding since last night without blood clot, abdominal pain, diarrhea, constipation, blood in the urine, black stool, blood in her stool, coughing blood, vomiting blood, nosebleed, chest pain, shortness of breath, nausea vomiting, fever, runny nose, sore throat, coughing. Her last dose Eliquis was yesterday morning. She said 2 months ago she had similar symptoms but have not had investigation for vaginal bleeding. Related Data Home Medications ?Medication ?Instructions ?Recorded ?Confirmed mecobalamin (vitamin B12) PO DAILY 07/04/19 01/27/22 aspirin 81 mg tablet,delayed 81 mg PO DAILY 03/04/21 01/27/22 release (Adult Low Dose Aspirin) Previous Rx's ?Medication ?Instructions ?Recorded albuterol sulfate 2.5 mg/3 mL 3 ml INH X1 PRN ##1 05/03/17 (0.083 %) solution for nebulization albuterol sulfate 90 mcg/actuation 1 puff INH Q4HP PRN ##8 05/03/17 aerosol inhaler (Ventolin HFA) inhalational spacing device ##1 05/03/17 (Vortex Holding Chamber) blood sugar diagnostic (Blood #100 ea 05/27/21 Glucose Test strips) fluticasone propionate 50 1 spray intranasal DAILY #3 ea 07/21/21 mcg/actuation nasal spray,suspension insulin aspart U-100 100 unit/mL 5 unit (0.05 mL) SUBCUT TID Dose 08/11/21 (3 mL) subcutaneous pen (Novolog change #15 mL FlexPen U-100 Insulin aspart) alcohol swabs (Alcohol Prep Pads) 1 pad topical QID USE TO CLEAN 11/14/21 SKIN BEFORE BLOOD GLUCOSE TESTING. #100 ea chlorthalidone 25 mg tablet See Rx Instructions .Route 12/15/21 .COMPLEX #90 tabs furosemide 20 mg tablet 20 mg PO DAILY #90 tabs 12/15/21 losartan 25 mg tablet 25 mg PO QDAY #90 tabs 12/15/21 pioglitazone 30 mg tablet See Rx Instructions .Route 12/15/21 .COMPLEX #90 tabs blood sugar diagnostic (Blood #90 ea 01/19/22 Glucose Test strips) blood-glucose meter #1 ea 01/19/22 lancets 30 gauge (Easy Touch #200 ea 01/19/22 Safety Lancets) celecoxib 200 mg capsule (Celebrex) 200 mg PO DAILY #30 caps 01/27/22 gabapentin 100 mg capsule 100 mg PO BEDTIME #60 caps 01/27/22 insulin glargine 100 unit/mL (3 20 unit (0.2 mL) SUBCUT QPM #15 mL 01/27/22 mL) subcutaneous pen pravastatin 20 mg tablet 20 mg PO BEDTIME #90 tabs 01/27/22 blood-glucose sensor (Dexcom G6 #3 ea 02/06/22 Sensor device) blood-glucose transmitter (Dexcom #1 ea 02/06/22 G6 Transmitter device) blood-glucose,seat maker,cont #1 ea 02/06/22 (Dexcom G6 Financial Auditor) metoprolol succinate 25 mg See Rx Instructions .Route 09/30/22 tablet,extended release 24 hr .COMPLEX #180 tabs cefdinir 300 mg capsule 300 mg PO BID #20 caps 09/16/25 Allergies Allergy/AdvReac Type Severity Reaction Status Date / Time amphetamine (AMPHETAMINE) Allergy Mild ELEVATED BP Verified 09/16/25 07:41 fentanyl (FENTANYL) Allergy Mild Verified 09/16/25 07:41 fluoxetine (FLUOXETINE) Allergy Mild Verified 09/16/25 07:41 hydrocodone (HYDROCODONE) Allergy Mild Verified 09/16/25 07:41 theophylline (THEOPHYLLINE) Allergy Mild Verified 09/16/25 07:41 diphenhydramine Allergy Unknown Verified 09/16/25 07:41 lisinopril Allergy Unknown cough Verified 09/16/25 07:41 metformin Allergy Unknown pain, Verified 09/16/25 07:41 diarrhea oxycodone Allergy Unknown Verified 09/16/25 07:41 phenylpropanolamine Allergy Unknown tachycardia, Verified 09/16/25 07:41 HTN Petroleum Liquids Products Allergy Unknown swelling, Uncoded 09/16/25 07:41 wells Propellant used with some Allergy Unknown Uncoded 09/16/25 07:41 Albuterol Review of Systems Review of Systems Narrative: Positive for vaginal bleeding. Negative for vaginal blood clot, abdominal pain, diarrhea, constipation, blood in the urine, black stool, blood in her stool, coughing blood, vomiting blood, nosebleed, chest pain, shortness of breath, nausea vomiting, fever, runny nose, sore throat, coughing. Patient History Medical History Hyperlipemia Alopecia areata Cognitive impairment Chronic Kidney Disease Type 2 diabetes mellitus with other diabetic neurological complication Atrophic vaginitis Cholecystectomy planned Exam Narrative Exam Narrative: GENERAL: Awake alert without acute distress HEAD: Atraumatic. Normocephalic. CARDIOVASCULAR: Regular rate and rhythm without murmurs, gallops, or rubs. RESPIRATORY: Clear to auscultation. Breath sounds equal bilaterally. No wheezes, rales, or rhonchi. GASTROINTESTINAL: Abdomen soft, non-tender, nondistended. EXTREMITIES: No edema or joint tenderness. NEURO: Awake alert and answering questions appropriately at the baseline. SKIN: No rash or erythema of visible areas Pelvic exam: pelvic exam on the stretcher but could not see the cervix. Normal introitus and vaginal canal without any blood. Whitish discharge without smell. Initial Vital Signs Initial Vital Signs: Vital Signs Pulse Rate 74 09/16/25 07:25 Pulse Oximetry 92 09/16/25 07:25 Course Orders Ordered: ED Orders 09/16/25 07:32 CBC Auto Diff [Complete Blood Count AUTO DIFF] Stat CMP [Comprehensive Metabolic Panel] Stat PT [Prothrombin Time INR] Stat 09/16/25 07:33 CT abdomen pelvis w con Stat US pelvic complete Stat 09/16/25 08:20 UA Complete [Urinalysis and Microscopic] Stat Urine Culture Stat 09/16/25 12:38 Blood Culture Stat Discontinued Medications Ceftriaxone Sodium 2,000 mg/ (Sodium Chloride) 100 mls @ 200 mls/hr IV NOW ONE Stop: 09/16/25 12:03 Last Admin: 09/16/25 12:32 Dose: 200 mls/hr Documented By: RICKEY Vital Signs Vital signs: Vital Signs - 8 hr 09/16/25 07:25 09/16/25 07:26 09/16/25 07:26 Temperature Pulse Rate 74 74 Respiratory Rate Blood Pressure 149/70 H Pulse Oximetry 92 95 Oxygen Delivery Method 09/16/25 07:30 09/16/25 07:32 09/16/25 07:35 Temperature 98.2 F Pulse Rate 74 72 Respiratory Rate 16 Blood Pressure 148/70 H 169/71 H Pulse Oximetry 95 95 Oxygen Delivery Method Room Air 09/16/25 07:35 09/16/25 08:00 09/16/25 08:30 Temperature Pulse Rate 74 75 76 Respiratory Rate Blood Pressure Pulse Oximetry 93 94 93 Oxygen Delivery Method 09/16/25 09:00 09/16/25 09:17 09/16/25 10:48 Temperature Pulse Rate 77 Respiratory Rate Blood Pressure 160/72 H Pulse Oximetry 95 94 Oxygen Delivery Method Medical Decision Making Lab Data 09/16/25 07:32 09/16/25 07:32 Labs: Lab Results 09/16/25 09/16/25 Range/Units 07:32 08:20 WBC 7.5 (4.5-11.0) X10^3/uL RBC 4.08 (4.0-5.2) X10^6/uL Hgb 13.4 (12.0-16.0) g/dL Hct 39.2 (36-46) % MCV 96.1 (80-100) fL MCH 33.0 (26-34) PG MCHC 34.3 (30-36) % RDW 12.7 (11.6-14.8) % Plt Count 243 (150-400) X10^3/uL Neut % (Auto) 61.0 (50-75) % Lymph % (Auto) 28.1 (25-40) % [place] % (Auto) 8.3 (3-14) % Eos % (Auto) 2.0 (2-4) % Baso % (Auto) 0.6 (0-2) % Neut # (Auto) 4500 (5565-0769) /uL Lymph # (Auto) 2100 (7027-3151) /uL [place] # (Auto) 600 (0-900) /uL Eos # (Auto) 200 (0-450) /uL Baso # (Auto) 0 (0-100) /uL PT 13.5 H (9.4-12.5) SECONDS INR 1.2 (0.9-1.3) Sodium 139 (137-145) mmol/L Potassium 4.6 (3.4-5.1) mmol/L Chloride 104 (98-107) mmol/L Carbon Dioxide 27 (22-32) mmol/L BUN 26 H (7-17) mg/dL Creatinine 0.97 (0.52-1.04) mg/dL Estimated GFR 60 (>60) mL/min BUN/Creatinine Ratio 26.8 H (6-22) Glucose 217 H (70-99) mg/dL Calcium 9.5 (8.4-10.2) mg/dL Total Bilirubin 0.3 (0.2-1.3) mg/dL AST 27 (14-36) IU/L ALT 19 (<35) IU/L Alkaline Phosphatase 111 (38-126) U/L Total Protein 7.8 (6.3-8.2) g/dL Albumin 3.9 (3.5-5.0) g/dL Globulin 3.9 (1.7-4.1) g/dL Albumin/Globulin Ratio 1.0 (1.0-2.8) Urine Color Red Urine Appearance Sl cloudy Urine pH 8.0 (4.5-8.0) Ur Specific Page 1.010 (1.000-1.035) Urine Protein 2+ H (Negative) Urine Glucose (UA) Trace H (Negative) g/dL Urine Ketones Negative (NEGATIVE) Urine Occult Blood 3+ H (Negative) Urine Nitrate Positive H (Negative) Urine Bilirubin Negative (NEGATIVE) Urine Urobilinogen 0.2 (0.2) E.U./dL Ur Leukocyte Esterase 2+ H (NEGATIVE) Urine RBC >100/hpf H (0-5/HPF) Urine WBC >100/hpf H (0-5/HPF) Ur Squamous Epith Cells None seen (0-5/HPF) Urine Bacteria Many (>30) H (None) Ur Culture Indicated? Specimen cultured Vol Urine Centrifuged 10ml (spun) Imaging Data Pelvic ultrasound: Radiologist's Impression: PROCEDURE: US PELVIC COMPLETE INDICATIONS: Vaginal bleeding TECHNIQUE: Real-time scanning was performed of the pelvic organs, with image documentation. Additional endovaginal scanning was necessary due to incomplete visualization of the adnexal and endometrial structures by transabdominal scanning. COMPARISON: None. FINDINGS: Uterus: The uterus is anteverted and normal in size at 6.6 x 4.1 x 3.8 cm. The myometrium is homogeneous. The endometrium measures 8 mm combined thickness. The endometrium is mildly heterogeneous with appearance of microcystic spaces. Ovaries: The right ovary measures 3.6 x 3.2 x 2.1 cm, with a calculated ovarian volume of 12.7 cc. The right ovary demonstrates multiple tiny cysts without dominant cyst. The left ovary measures 10.3 x 6.5 x 6.2 cm, with a calculated ovarian volume of 217.1 cc. The left ovary consists predominantly of numerous simple cysts, the largest of which measures 5.8 x 5.9 cm thin septations separate these cysts without mural nodules or calcification. There is minimal ovarian stroma and no nodular solid component. The left arterial waveform is normal. Other: No pathologic free abdominal or pelvic fluid. No adnexal masses are seen. IMPRESSION: Endometrial thickening. Correlate with medications as this is within normal limits for patient on HRT or tamoxifen. If patient is not taking any hormonally active medications, this is suspicious for malignancy and should be further evaluated with referral to gynecology. Bilateral ovarian cystic lesions, left significantly larger than the right, without suspicious features other than size and menopausal status. Referral to gynecology is recommended and pelvic MRI with contrast could be considered on a routine outpatient basis. We strive to produce accurate, complete, and clear reports of imaging services. To assist us in improving patient care, this report was composed using standard report templates and voice recognition software. Therefore, it may contain abnormal punctuation, insertions and/or omissions. Occasional wrong-word or sound-alike substitutions may occur. Though we review the report and make efforts to correct it, we do recommend that the report be read carefully in proper context to recognize any text inaccuracies. Dictated by: Bri Edmond M.D. on 09/16/2025 at 9:42 Approved by: Bri Edmond M.D. on 09/16/2025 at 9:51 CT scan - abdomen/pelvis: Radiologist's Impression: PROCEDURE: CT ABDOMEN PELVIS W CON INDICATIONS: Vaginal bleeding TECHNIQUE: After the administration of intravenous contrast, axial sections acquired from the lung bases to the pubic symphysis. Coronal and sagittal reformats were performed. For radiation dose reduction, the following was used: automated exposure control, adjustment of mA and/or kV according to patient size. COMPARISON: [facility], CT, CT KIDNEY URETER BLADDER (KUB), 03/20/2024, 14:17. FINDINGS: Image quality: Diagnostic. Lower Chest: No significant findings. ABDOMEN: Liver: No solid mass. Gallbladder: Absent Biliary ducts: No biliary dilation. Pancreas: No ductal dilation. Spleen: Size is within normal limits. Adrenal Glands: No adrenal nodules. Kidneys and Ureters: Right nephrostomy no longer present. Large right renal pelvic stone, floating in the renal pelvis, likely intermittently obstructive. Thickened enhancing renal pelvis and ureter on the right consistent with ureteritis. Obstructing distal ureteral stone on the right measuring approximately 8 mm in maximum diameter. Reference axial image 107 of series 2. Moderate right hydronephrosis. Large right calyceal stones. Significant interval increase in the right-sided renal stone burden. Significant interval increase in size of left renal stone burden as well. No left hydronephrosis. No left ureteral stone. Stomach and Bowel: Normal colonic caliber, without significant wall thickening. Peritoneum: No abnormal intraperitoneal fluid. No free air. Ventral Wall: No significant ventral hernia. Abdominal Nodes: No retroperitoneal or mesenteric adenopathy by size criteria. Vessels: Aorta and inferior vena cava are normal in size. PELVIS: Pelvic Organs: Increasing size of partially cystic and partially solid left ovarian lesion, previously approximately 6.5 x 5.3 x 9.5 cm, and currently 7.0 x 5.7 x 10.0 cm. Uterus is present. There is posterior pelvic floor relaxation with inferior descent of the rectoanal junction. Bladder: No bladder wall thickening, accounting for underdistention. Pelvic Nodes: No enlarged lymph nodes. Miscellaneous: No inguinal hernias are seen. Bones: No aggressive osseous abnormality. IMPRESSION: 1. There is significant interval increase in the stone burden in both kidneys, right greater than left. 2. There is an obstructing 8 mm maximum diameter stone in the pelvic portion of the right ureter. There is a large stone floating in the right renal pelvis. There is moderate hydronephrosis. 3. Thickened inflamed enhancing right renal pelvis and right ureter likely represent bacterial right ureteritis and pyelitis. 5. 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 Comments: Recommend urology consult. Recommend nonemergent OUTPATIENT CASE MANAGER consult. Dictated by: Marques Menjivar M.D. on 09/16/2025 at 9:12 Approved by: Marques Menjivar M.D. on 09/16/2025 at 9:22 MDM Narrative Medical decision making narrative: 80 years old female with history of diabetes, hypertension, dyslipidemia brought in by an ambulance for vaginal bleeding since last night. She denied any abdominal pain, fever, nausea vomiting, chest pain, shortness of breath. Her last Eliquis was yesterday morning. PT 13.5 and INR 1.2. Her CBC was normal with hemoglobin 13.4 and no leukocytosis. Her BMP was normal. I tried to do a pelvic exam on the stretcher but could not see the cervix. Normal introitus and vaginal canal without any blood. Whitish discharge without smell. The urine from straight cath showed cloudy pink urine. Pelvic ultrasound showed endometrial thickening need for the evaluation and referral to trucking supervisor. Bilateral ovarian cysts left greater than right require gynecology referral. CT scan abdomen and pelvis showed IMPRESSION: 1. There is significant interval increase in the stone burden in both kidneys, right greater than left. 2. There is an obstructing 8 mm maximum diameter stone in the pelvic portion of the right ureter. There is a large stone floating in the right renal pelvis. There is moderate hydronephrosis. 3. Thickened inflamed enhancing right renal pelvis and right ureter likely represent bacterial right ureteritis and pyelitis. 5. 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 Comments: Recommend urology consult. Recommend nonemergent OUTPATIENT CASE MANAGER consult. I discussed the case with Dr. Eden recommended no urgent need for stenting at this time. Continue antibiotic and observation in the hospital if no improvement she can be consult again for possible transfer. We plan to do OBGYN outpatient consult. I will discuss with our hospitalist. He already got IV antibiotic. Discussed the case with our hospitalist recommended outpatient treatment with antibiotics after IV Rocephin. He was discharged with cefdinir twice a day for 10 days. I put a referral to follow up with OBGYN and urologist outpatient. Return to the ED precautions was given. Discharge Plan Departure Patient Disposition: [facility] Clinical Impression: Acute UTI (urinary tract infection), Hydronephrosis, Endometrial thickening on ultrasound Prescriptions: New cefdinir 300 mg capsule 300 mg PO BID Qty: 20 0RF No Action albuterol sulfate 2.5 MG/3 ML solution for nebulization 3 ml INH X1 PRNQty: 1 0RF albuterol sulfate [Ventolin HFA] 90 MCG/PUFF HFA aerosol inhaler 1 puff INH Q4HP PRNQty: 8 PRNRF ([facility]) inhalational spacing device [Vortex Holding Chamber] 1 EACH spacer 1 ea MC X1 Qty: 1 0RF ([facility]) Blood Glucose Test Strip See Rx Instructions .Route Qty: 100 5RF Rx Instructions: Use to check blood sugar three times daily. fluticasone propionate 50 mcg/actuation spray,suspension 1 spray intranasal DAILY Qty: 3 1RF Rx Instructions: administer into each nostril insulin aspart U-100 [Novolog FlexPen U-100 Insulin] 100 unit/mL (3 mL) insulin pen 5 unit SUBCUT TID Qty: 15 3RF Rx Instructions: Three times daily before meals plus sliding scale. 200-250 add 2 units. 250-300 add 3 units. 300-350 add 4 units. 350-400 add 5 units. 400-500 add 6 units. alcohol swabs [Alcohol Prep Pads] Pads, Medicated 1 pad topical QID Qty: 100 0RF pioglitazone 30 mg tablet See Rx Instructions .ROUTE .COMPLEX Qty: 90 1RF Dose Instruction: TAKE 1 TABLET EVERY DAY Rx Instructions: TAKE 1 TABLET EVERY DAY chlorthalidone 25 mg tablet See Rx Instructions .ROUTE .COMPLEX Qty: 90 1RF Dose Instruction: TAKE 1 TABLET EVERY DAY Rx Instructions: TAKE 1 TABLET EVERY DAY furosemide 20 mg tablet 20 mg PO DAILY Qty: 90 1RF losartan 25 mg tablet 25 mg PO QDAY Qty: 90 1RF Rx Instructions: Bridge rx while waiting for mail order rx. ([facility]) blood-glucose meter Kit See Rx Instructions .Route Qty: 1 0RF Rx Instructions: Check blood glucose TID before meals ([facility]) Blood Glucose Test Strip See Rx Instructions .Route Qty: 90 3RF Rx Instructions: Check blood glucose TID before meals ([facility]) lancets [Easy Touch Safety Lancets] 30 gauge misc See Rx Instructions .Route Qty: 200 3RF Rx Instructions: Check blood glucose TID before meals ([facility]) Dexcom G6 Financial Auditor Misc See Rx Instructions .Route Qty: 1 0RF Rx Instructions: As directed ([facility]) Dexcom G6 Sensor Device See Rx Instructions .Route Qty: 3 4RF Rx Instructions: As directed ([facility]) Dexcom G6 Transmitter Device See Rx Instructions .Route Qty: 1 4RF Rx Instructions: As directed metoprolol succinate 25 mg tablet extended release 24 hr See Rx Instructions .ROUTE .COMPLEX Qty: 180 0RF Dose Instruction: TAKE 1 TABLET TWICE DAILY Rx Instructions: TAKE 1 TABLET TWICE DAILY aspirin [Adult Low Dose Aspirin] 81 mg tablet,delayed release (DR/EC) 81 mg PO DAILY insulin glargine 100 unit/mL (3 mL) insulin pen 20 unit SUBCUT QPM Qty: 15 5RF pravastatin 20 mg tablet 20 mg PO BEDTIME Qty: 90 3RF celecoxib [Celebrex] 200 mg capsule 200 mg PO DAILY Qty: 30 2RF gabapentin 100 mg capsule 100 mg PO BEDTIME Qty: 60 2RF Rx Instructions: may increase to 2 po qhs mecobalamin (vitamin B12) PO DAILY Referrals: Miscellaneous,MD Melonie [Primary Care Provider, Medical] Shannan Ross MD [Physician, Family Practice] Referral Note: Endometrial thickening. Vince Norton MD [Non-Staff, Urology] [facility] Discharge Plan Provider Discharge comment: Please come back to the emergency room if any worsening symptoms including but not limited to worsening bleeding, fever, vomiting, worsening abdominal pain, confusion. Please set up follow up outpatient appointment with urologist, sports medicine trainer outpatient for obstructing stone and endometrial thickening.
[2025-09-16 07:41] LABS: Add Manual Diff / Slide Review NO; Hematocrit 39.2 % (36-46); Hemoglobin 13.4 g/dL (12.0-16.0); Lymphocytes Absolute Auto 2100 /uL (1100-4500); Mean Corpuscular HGB Conc 34.3 % (30-36); Mean Corpuscular Hemoglobin 33.0 PG (26-34); Mean Corpuscular Volume 96.1 fL (80-100); Platelet Count 243 X10^3/uL (150-400)
[2025-09-16 07:47] LABS: INR 1.2 (0.9-1.3); Prothrombin Time 13.5 SECONDS (9.4-12.5)
[2025-09-16 07:51] LABS: Alanine Aminotransferase 19 IU/L (<35); Albumin 3.9 g/dL (3.5-5.0); Albumin Globulin Ratio 1.0 (1.0-2.8); Alkaline Phosphatase 111 U/L (38-126); Blood Urea Nitrogen 26 mg/dL (7-17); Calcium 9.5 mg/dL (8.4-10.2); Carbon Dioxide 27 mmol/L (22-32); Chloride 104 mmol/L (98-107); Estimated Glomerular Filt Rate 60 mL/min (>60); Globulin 3.9 g/dL (1.7-4.1); Glucose 217 mg/dL (70-99); HEMOLYSIS 17 (0-50); Potassium 4.6 mmol/L (3.4-5.1); Sodium 139 mmol/L (137-145); Total Protein 7.8 g/dL (6.3-8.2)
--- NOTE | 2025-09-16 08:23 | PC.NURSE ---
Pt presents to ER after [facility] staff reported seeing blood that was suspected to be from pt's vagina. RN was at bedside during MD's vaginal assessment and no blood was noted in vaginal canal. Some dried red spots were seen in pt's depends but it was minimal. MD ordered a in-and-out cath to be done to obtain urine which was completed by TIEN Cast with this proposal lead writer standing by. Both RNs observed that pt's urine was red in color when it was obtained. Urine sent down by wait staff for testing.
[2025-09-16 08:31] LABS: Appearance Urine UA SL CLOUDY; Bilirubin Urine UA NEGATIVE (NEGATIVE); Color Urine UA RED; Glucose Urine UA TRACE g/dL (Negative); Ketones Urine UA NEGATIVE (NEGATIVE); Leukocyte Esterase Urine UA 2+ (NEGATIVE); Nitrite Urine UA POSITIVE (Negative); Occult Blood Urine UA 3+ (Negative); Protein Urine UA 2+ (Negative); Specific Gravity Urine UA 1.010 (1.000-1.035); Urobilinogen Urine UA 0.2 E.U./dL (0.2); pH Urine UA 8.0 (4.5-8.0)
[2025-09-16 08:37] LABS: Culture Indicated Urine Specimen Cultured
--- NOTE | 2025-09-16 09:02 | PC.NURSE ---
Periwick in place. Bladder needs to be emptied for US.
--- NOTE | 2025-09-16 09:18 | PC.NURSE ---
Patient repositioned into stirups for vaginal US.
[2025-09-16] MEDS: cefTRIAXone 2,000 MG in SODIUM CHLORIDE 0.9% 100 ML 200 MG IV (12:32)
--- NOTE | 2025-09-16 13:00 | PC.NURSE ---
no changes from initial assessment
== END 2025-09-16 14:17 ==
PROVIDERS: Emergency Provider Emergency Medicine; Referring Provider Emergency Medicine
DX: N39.0 Urinary tract infection, site not specified (principal); N13.30 Unspecified hydronephrosis; R93.89 Abnormal findings on diagnostic imaging of other specified body structures
CPT/HCPCS: 36415; 74177; 76830; 76856; 80053; 81001; 85025; 85610; 87040; 87077; 87086; 87186; 93976; 96365; 99284; J0696; J7050; Q9967

== ENCOUNTER 2025-09-26 18:01 | Emergency (ER) | payer MEDICARE, OTHER, MEDICAID, SELFPAY ==
[2024-12-05 01:33] VITALS: PULSE 69; RESP 16; O2SAT 96
[2025-09-26] VITALS (15 sets, daily range): BP systolic 118–177; BP diastolic 60–122; PULSE 76–90; RESP 16–36; TEMP 36.6; O2SAT 91–94
--- NOTE | 2025-09-26 18:08 | DI.CT.S_ITS ---
PROCEDURE: CT HEAD/BRAIN WO CON INDICATIONS: fall TECHNIQUE: Noncontrast 4.5 mm thick angled axial sections acquired from the foramen magnum to the vertex, with coronal and sagittal reformats. For radiation dose reduction, the following was used: automated exposure control, adjustment of mA and/or kV according to patient size. COMPARISON: None. FINDINGS: Image quality: Diagnostic. CSF spaces: Basal cisterns are patent. No extra-axial fluid collections. The ventricles are symmetric in size and shape. Brain: No intracranial bleeds or mass effect. There is cerebral volume loss, with resultant ventricular and sulcal prominence. There are periventricular and deep white matter chronic small vessel ischemic changes. There is intracranial internal carotid artery atherosclerosis. Skull and face: Calvarium and visualized facial bones appear intact, without suspicious lesions. Sinuses: Visualized sinuses and mastoids are clear. IMPRESSION: 1. No acute intracranial process. 2. Moderate atrophy and chronic microvascular ischemic changes. Dictated by: Tami Levin M.D. on 09/26/2025 at 19:01 Approved by: Tami Levin M.D. on 09/26/2025 at 19:02
--- NOTE | 2025-09-26 18:09 | DI.RAD.S_ITS ---
PROCEDURE: XR CHEST 1V INDICATIONS: Chest Pain TECHNIQUE: One view of the chest was acquired. COMPARISON: [facility], CR, XR CHEST 1V, 12/04/2024, 19:50. FINDINGS: Surgical changes and devices: None. Lungs and pleura: Increased pulmonary vascularity. Mediastinum: Mediastinal contours appear normal. Heart size is enlarged. Bones and chest wall: No suspicious bony lesions. Overlying soft tissues appear unremarkable. IMPRESSION: Increased pulmonary vascularity with cardiomegaly suggestive of edema. Dictated by: Tami Levin M.D. on 09/26/2025 at 19:12 Approved by: Tami Levin M.D. on 09/26/2025 at 19:12
--- NOTE | 2025-09-26 18:09 | DI.CT.S_ITS ---
PROCEDURE: CT CERVICAL SPINE WO CON INDICATIONS: fall on thinners TECHNIQUE: Noncontrast 3 mm thick sections acquired from the skull base to the T4 level. Sagittal and coronal reformats were then constructed. For radiation dose reduction, the following was used: automated exposure control, adjustment of mA and/or kV according to patient size. COMPARISON: None. FINDINGS: Image quality: Excellent. Bones: No fractures or dislocations. Visualized superior ribs are intact. Multilevel degenerative changes. Soft tissues: Prevertebral soft tissues are normal in thickness. No paravertebral hematomas. No apical pneumothoraces. IMPRESSION: Multilevel degenerative changes without visualized fracture. Dictated by: Tami Levin M.D. on 09/26/2025 at 19:02 Approved by: Tami Levin M.D. on 09/26/2025 at 19:03
--- NOTE | 2025-09-26 18:17 | ED.FALL ---
HPI - Fall General Chief Complaint: Trauma Stated Complaint: syncopal, fall on thinners Time Seen by Provider: 09/26/25 18:04 History of Present Illness HPI Narrative: 80-year-old female history of diabetes hypertension dyslipidemia DVT on Eliquis brought in by ambulance today for a ground level fall she resides at [facility] for which he is only complaining of bilateral knee pain at this time. Patient denies headache, dizziness, neck, chest, back, abdomen pain, bowel or bladder incontinence. Other than what is stated 14pt ROS is negative. Related Data Home Medications ?Medication ?Instructions ?Recorded ?Confirmed mecobalamin (vitamin B12) PO DAILY 07/04/19 01/27/22 aspirin 81 mg tablet,delayed 81 mg PO DAILY 03/04/21 01/27/22 release (Adult Low Dose Aspirin) Previous Rx's ?Medication ?Instructions ?Recorded albuterol sulfate 2.5 mg/3 mL 3 ml INH X1 PRN ##1 05/03/17 (0.083 %) solution for nebulization albuterol sulfate 90 mcg/actuation 1 puff INH Q4HP PRN ##8 05/03/17 aerosol inhaler (Ventolin HFA) inhalational spacing device ##1 05/03/17 (Vortex Holding Chamber) blood sugar diagnostic (Blood #100 ea 05/27/21 Glucose Test strips) fluticasone propionate 50 1 spray intranasal DAILY #3 ea 07/21/21 mcg/actuation nasal spray,suspension insulin aspart U-100 100 unit/mL 5 unit (0.05 mL) SUBCUT TID Dose 08/11/21 (3 mL) subcutaneous pen (Novolog change #15 mL FlexPen U-100 Insulin aspart) alcohol swabs (Alcohol Prep Pads) 1 pad topical QID USE TO CLEAN 11/14/21 SKIN BEFORE BLOOD GLUCOSE TESTING. #100 ea chlorthalidone 25 mg tablet See Rx Instructions .Route 12/15/21 .COMPLEX #90 tabs furosemide 20 mg tablet 20 mg PO DAILY #90 tabs 12/15/21 losartan 25 mg tablet 25 mg PO QDAY #90 tabs 12/15/21 pioglitazone 30 mg tablet See Rx Instructions .Route 12/15/21 .COMPLEX #90 tabs blood sugar diagnostic (Blood #90 ea 01/19/22 Glucose Test strips) blood-glucose meter #1 ea 01/19/22 lancets 30 gauge (Easy Touch #200 ea 01/19/22 Safety Lancets) celecoxib 200 mg capsule (Celebrex) 200 mg PO DAILY #30 caps 01/27/22 gabapentin 100 mg capsule 100 mg PO BEDTIME #60 caps 01/27/22 insulin glargine 100 unit/mL (3 20 unit (0.2 mL) SUBCUT QPM #15 mL 01/27/22 mL) subcutaneous pen pravastatin 20 mg tablet 20 mg PO BEDTIME #90 tabs 01/27/22 blood-glucose sensor (Dexcom G6 #3 ea 02/06/22 Sensor device) blood-glucose transmitter (Dexcom #1 ea 02/06/22 G6 Transmitter device) blood-glucose,sfdc architect,cont #1 ea 02/06/22 (Dexcom G6 Musical Engineer) metoprolol succinate 25 mg See Rx Instructions .Route 09/30/22 tablet,extended release 24 hr .COMPLEX #180 tabs cefdinir 300 mg capsule 300 mg PO BID #20 caps 09/16/25 Allergies Allergy/AdvReac Type Severity Reaction Status Date / Time amphetamine (AMPHETAMINE) Allergy Mild ELEVATED BP Verified 09/16/25 07:41 fentanyl (FENTANYL) Allergy Mild Verified 09/16/25 07:41 fluoxetine (FLUOXETINE) Allergy Mild Verified 09/16/25 07:41 hydrocodone (HYDROCODONE) Allergy Mild Verified 09/16/25 07:41 theophylline (THEOPHYLLINE) Allergy Mild Verified 09/16/25 07:41 diphenhydramine Allergy Unknown Verified 09/16/25 07:41 lisinopril Allergy Unknown cough Verified 09/16/25 07:41 metformin Allergy Unknown pain, Verified 09/16/25 07:41 diarrhea oxycodone Allergy Unknown Verified 09/16/25 07:41 phenylpropanolamine Allergy Unknown tachycardia, Verified 09/16/25 07:41 HTN Petroleum Liquids Products Allergy Unknown swelling, Uncoded 09/16/25 07:41 wells Propellant used with some Allergy Unknown Uncoded 09/16/25 07:41 Albuterol Review of Systems Review of Systems ROS Unobtainable: All systems reviewed & are unremarkable except as noted in HPI and below Patient History Medical History Hyperlipemia Alopecia areata Cognitive impairment Chronic Kidney Disease Type 2 diabetes mellitus with other diabetic neurological complication Atrophic vaginitis Cholecystectomy planned Social History Smoking Status: Never smoker Exam Narrative Exam Narrative: GENERAL: [80] year old patient appears stated age. Well-developed patient, in mild distress. HEAD: Atraumatic. Normocephalic. EYES: Pupils equal round and reactive. Extraocular motions intact. No scleral icterus. No injection or drainage. ENT: Nose without bleeding, purulent drainage. Throat without erythema, tonsillar hypertrophy or exudate. Airway patent. NECK: Trachea midline. Non tender CARDIOVASCULAR: Regular rate and rhythm without murmurs, gallops, or rubs. RESPIRATORY: Clear to auscultation. Breath sounds equal bilaterally. No wheezes, rales, or rhonchi. GASTROINTESTINAL: Abdomen soft, non-tender, nondistended. EXTREMITIES: No edema or joint tenderness. BACK: Nontender without deformity or crepitance. No flank tenderness. NEURO: AOx3.GCS 15 SKIN: No rash or erythema of visible areas Initial Vital Signs Initial Vital Signs: Vital Signs Temperature 97.9 F 09/26/25 18:20 Pulse Rate 76 09/26/25 18:20 Respiratory Rate 16 09/26/25 18:20 Blood Pressure 118/60 09/26/25 18:20 Pulse Oximetry 91 09/26/25 18:20 Oxygen Delivery Method Room Air 09/26/25 18:20 Course Orders Ordered: ED Orders 09/26/25 18:08 CT head/brain wo con Stat 09/26/25 18:09 CT cervical spine wo con Stat XR chest 1V Stat EKG-12 Lead Stat 09/26/25 18:17 XR knee LT 1to2V Stat XR knee RT 1to2V Stat XR pelvis 1-2V Stat 09/26/25 18:25 Complete Blood Count AUTO DIFF Stat Comprehensive Metabolic Panel Stat Lipase Stat Magnesium Stat NT-proBNP (BNP-Adult 18+) Stat PTT Partial Thromboplastin Dada Stat Prothrombin Time INR Stat Troponin & CK Cardiac Panel Stat Discontinued Medications Aspirin (Aspirin 81 Mg Chew Tab) 324 mg PO NOW ONE Stop: 09/26/25 18:10 Last Admin: 09/26/25 19:18 Dose: Not Given Documented By: RLC Lactated Ringer's (Lactated Ringers) 1,000 mls @ 1,000 mls/hr IV BOLUS ONE Stop: 09/26/25 19:19 Last Admin: 09/26/25 18:49 Dose: 1,000 mls/hr Documented By: [facility] Vital Signs Vital signs: Vital Signs - 8 hr 09/26/25 18:20 09/26/25 18:59 09/26/25 19:00 Temperature 97.9 F Pulse Rate 76 79 78 Respiratory Rate 16 17 17 Blood Pressure 118/60 Pulse Oximetry 91 94 93 Oxygen Delivery Method Room Air 09/26/25 19:30 09/26/25 20:00 09/26/25 20:13 Temperature Pulse Rate 79 79 Respiratory Rate 16 21 Blood Pressure 131/64 Pulse Oximetry 92 93 Oxygen Delivery Method Room Air 09/26/25 20:13 09/26/25 20:30 09/26/25 20:31 Temperature Pulse Rate 80 82 Respiratory Rate 27 H 36 H Blood Pressure 162/70 H Pulse Oximetry 93 94 Oxygen Delivery Method Room Air 09/26/25 20:31 09/26/25 21:00 09/26/25 21:00 Temperature Pulse Rate 82 83 Respiratory Rate 27 H 24 Blood Pressure 144/62 H Pulse Oximetry 94 Oxygen Delivery Method Room Air MDM - Fall Lab Data 09/26/25 18:25 09/26/25 18:25 Labs: Lab Results 09/26/25 Range/Units 18:25 WBC 7.8 (4.5-11.0) X10^3/uL RBC 3.84 L (4.0-5.2) X10^6/uL Hgb 12.7 (12.0-16.0) g/dL Hct 37.0 (36-46) % MCV 96.4 (80-100) fL MCH 33.1 (26-34) PG MCHC 34.3 (30-36) % RDW 13.2 (11.6-14.8) % Plt Count 271 (150-400) X10^3/uL Neut % (Auto) 50.8 (50-75) % Lymph % (Auto) 40.4 H (25-40) % [place] % (Auto) 6.4 (3-14) % Eos % (Auto) 1.9 L (2-4) % Baso % (Auto) 0.5 (0-2) % Neut # (Auto) 4000 (6402-9708) /uL Lymph # (Auto) 3200 (7349-1490) /uL [place] # (Auto) 500 (0-900) /uL Eos # (Auto) 100 (0-450) /uL Baso # (Auto) 0 (0-100) /uL PT 13.0 H (9.4-12.5) SECONDS INR 1.1 (0.9-1.3) APTT 28 (25.1-36.5) SECONDS Sodium 135 L (137-145) mmol/L Potassium 4.6 (3.4-5.1) mmol/L Chloride 102 (98-107) mmol/L Carbon Dioxide 25 (22-32) mmol/L BUN 24 H (7-17) mg/dL Creatinine 1.05 H (0.52-1.04) mg/dL Estimated GFR 54 L (>60) mL/min BUN/Creatinine Ratio 22.9 H (6-22) Glucose 239 H (70-99) mg/dL Calcium 9.3 (8.4-10.2) mg/dL Magnesium 1.9 (1.6-2.3) mg/dL Total Bilirubin 0.2 (0.2-1.3) mg/dL AST 25 (14-36) IU/L ALT 18 (<35) IU/L Alkaline Phosphatase 101 (38-126) U/L Total Creatine Kinase 43 (30-135) U/L Troponin I < 0.012 (0.01-0.034) ng/mL NT-Pro-B Natriuret Pep 204 (<450) pg/mL Total Protein 7.3 (6.3-8.2) g/dL Albumin 3.8 (3.5-5.0) g/dL Globulin 3.5 (1.7-4.1) g/dL Albumin/Globulin Ratio 1.1 (1.0-2.8) Lipase 257 (23-300) U/L Imaging Data CT scan - head: Radiologist's Impression: [address] [address] [address] Scan Report Signed Patient: Carlitos Abdullahi MR#: [id number] : 1945 Acct:[id number] Age/Sex: 80 / F Date of Service: 09/26/25 Loc: ED Accession Number: [id number] Procedure: CT head/brain wo con Ordering Provider: Praveen Boyd D.O. PROCEDURE: CT HEAD/BRAIN WO CON INDICATIONS: fall TECHNIQUE: Noncontrast 4.5 mm thick angled axial sections acquired from the foramen magnum to the vertex, with coronal and sagittal reformats. For radiation dose reduction, the following was used: automated exposure control, adjustment of mA and/or kV according to patient size. COMPARISON: None. FINDINGS: Image quality: Diagnostic. CSF spaces: Basal cisterns are patent. No extra-axial fluid collections. The ventricles are symmetric in size and shape. Brain: No intracranial bleeds or mass effect. There is cerebral volume loss, with resultant ventricular and sulcal prominence. There are periventricular and deep white matter chronic small vessel ischemic changes. There is intracranial internal carotid artery atherosclerosis. Skull and face: Calvarium and visualized facial bones appear intact, without suspicious lesions. Sinuses: Visualized sinuses and mastoids are clear. IMPRESSION: 1. No acute intracranial process. 2. Moderate atrophy and chronic microvascular ischemic changes. CT - cervical spine: Radiologist's Impression: [place] [address] CT Scan Report Signed Patient: Carlitos Abdullahi MR#: [id number] : 1945 Acct:[id number] Age/Sex: 80 / F Date of Service: 09/26/25 Loc: ED Accession Number: [id number] Procedure: CT cervical spine wo con Ordering Provider: Praveen Boyd D.O. PROCEDURE: CT CERVICAL SPINE WO CON INDICATIONS: fall on thinners TECHNIQUE: Noncontrast 3 mm thick sections acquired from the skull base to the T4 level. Sagittal and coronal reformats were then constructed. For radiation dose reduction, the following was used: automated exposure control, adjustment of mA and/or kV according to patient size. COMPARISON: None. FINDINGS: Image quality: Excellent. Bones: No fractures or dislocations. Visualized superior ribs are intact. Multilevel degenerative changes. Soft tissues: Prevertebral soft tissues are normal in thickness. No paravertebral hematomas. No apical pneumothoraces. IMPRESSION: Multilevel degenerative changes without visualized fracture. Dictated by: Tami Levin M.D. on 09/26/2025 at 19:02 Approved by: Tami Levin M.D. on 09/26/2025 at 19:03 Chest x-ray: Radiologist's Impression: [address] [address] XRay Report Signed Patient: Carlitos Abdullahi MR#: [id number] : 1945 Acct:[id number] Age/Sex: 80 / F Date of Service: 09/26/25 Loc: ED Accession Number: [id number] Procedure: XR chest 1V Ordering Provider: Praveen Body D.O. PROCEDURE: XR CHEST 1V INDICATIONS: Chest Pain TECHNIQUE: One view of the chest was acquired. COMPARISON: [facility], , XR CHEST 1V, 12/04/2024, 19:50. FINDINGS: Surgical changes and devices: None. Lungs and pleura: Increased pulmonary vascularity. Mediastinum: Mediastinal contours appear normal. Heart size is enlarged. Bones and chest wall: No suspicious bony lesions. Overlying soft tissues appear unremarkable. IMPRESSION: Increased pulmonary vascularity with cardiomegaly suggestive of edema. Extremity x-ray #1: Radiologist's Impression: [address] [address] XRay Report Signed Patient: Carlitos Abdullahi MR#: [id number] : 1945 Acct:[id number] Age/Sex: 80 / F Date of Service: 09/26/25 Loc: ED Accession Number: [id number] Procedure: XR knee LT 1to2V Ordering Provider: Praveen Boyd D.O. PROCEDURE: XR KNEE LT 1TO2V INDICATIONS: pain TECHNIQUE: 2 views of the knee were acquired. COMPARISON: None. FINDINGS: Bones: No fractures or dislocations. No suspicious bony lesions. Severe tricompartmental arthritic change. Overall appearance of decreased bone mineral density. No erosions. Periarticular osteophytes. Soft tissues: Mild joint effusion. No suspicious soft tissue calcifications. IMPRESSION: Severe tricompartmental arthritic change. No visualized acute fracture or dislocation. However, if clinical concern and/or pain persist, short interval imaging followup in 7-10 days is recommended, as occult injury cannot be definitively excluded. Dictated by: Tami Levin M.D. on 09/26/2025 at 19:40 Approved by: Tami Levin M.D. on 09/26/2025 at 19:41 Extremity x-ray #2: Radiologist's Impression: [address] [address] XRay Report Signed Patient: Carlitos Abdullahi MR#: [id number] : 1945 Acct:[id number] Age/Sex: 80 / F Date of Service: 09/26/25 Loc: ED Accession Number: [id number] Procedure: XR knee RT 1to2V Ordering Provider: Praveen Boyd D.O. PROCEDURE: XR KNEE RT 1TO2V INDICATIONS: pain TECHNIQUE: 3 views of the knee were acquired. COMPARISON: None. FINDINGS: Bones: No fractures or dislocations. No suspicious bony lesions. Moderate to severe tricompartmental arthritic change. Soft tissues: Mild joint effusion. No suspicious soft tissue calcifications. IMPRESSION: Seen moderate to severe tricompartmental arthritic change. No visualized acute fracture or dislocation. However, if clinical concern and/or pain persist, short interval imaging followup in 7-10 days is recommended, as occult injury cannot be definitively excluded. Dictated by: Tami Levin M.D. on 09/26/2025 at 19:33 Approved by: Tami Levin M.D. on 09/26/2025 at 19:40 Extremity x-ray #3: Radiologist's Impression: [address] [address] XRay Report Signed Patient: Carlitos Abdullahi MR#: [id number] : 1945 Acct:[id number] Age/Sex: 80 / F Date of Service: 09/26/25 Loc: ED Accession Number: [id number] Procedure: XR pelvis 1-2V Ordering Provider: Praveen Boyd D.O. PROCEDURE: XR PELVIS 1-2V INDICATIONS: trauma TECHNIQUE: 1 view(s) of the pelvis acquired. COMPARISON: None. FINDINGS: Bones: No fractures or dislocations. No suspicious bony lesions. Old right femoral fixation. Ankle macro hardware is Soft tissues: Visualized bowel gas pattern is normal. No suspicious soft tissue calcifications. IMPRESSION: No visualized acute fracture or dislocation. However, if clinical concern and/or pain persist, short interval imaging followup in 7-10 days is recommended, as occult injury cannot be definitively excluded. Dictated by: Tami Levin M.D. on 09/26/2025 at 19:32 Approved by: Tami Levin M.D. on 09/26/2025 at 19:33 ECG Data Interpretation: NSR RBBB HR 73 VA 196 QRS [address]-t wave change Unchanged from 12/04/24 MDM Narrative Medical decision making narrative: All lab work, vital signs, nurse triage note, medication list, previous ER visits, and all imaging studies reviewed. Chest x-ray showed increased pulmonary vascularity with cardiomegaly suggestive of edema. Cervical spine showed multilevel degenerative changes without visualized fracture. CT head showed no acute intracranial process. Moderate atrophy and chronic microvascular ischemic changes. Both knee x-ray showed try compartmental arthritic change. Pelvic x-ray showed no visualized acute fracture or dislocation. WBC 7.8 hemoglobin 12.8 platelets 271 INR 1.1 sodium 135 potassium 4.6 CO2 25 Cl 102 BUN 24 creatinine 1.05 glucose 239 magnesium 1.9 LFTs normal troponin 1st set and 2nd set normal at less than 0.012 BNP 204 lipase 257. EKG normal sinus rhythm with Right bundle branch block. Differential diagnosis fracture dislocation pneumothorax STEMI NSTEMI CVA hemorrhage electrolyte derangement. Patient given LR 1L bolus x 1. Discharge Plan Departure Patient Disposition: Home Clinical Impression: Fall Qualifiers: Encounter type: sequela Qualified Code(s): W19.XXXS - Unspecified fall, sequela Instructions: DI for Trauma Activity Restrictions/Additional Instructions: Return with new or worsening symptoms. Follow up with PCP in 1-2 days for recheck. Prescriptions: No Action albuterol sulfate 2.5 MG/3 ML solution for nebulization 3 ml INH X1 PRNQty: 1 0RF albuterol sulfate [Ventolin HFA] 90 MCG/PUFF HFA aerosol inhaler 1 puff INH Q4HP PRNQty: 8 PRNRF (DME) inhalational spacing device [Vortex Holding Chamber] 1 EACH spacer 1 ea MC X1 Qty: 1 0RF (DME) Blood Glucose Test Strip See Rx Instructions .Route Qty: 100 5RF Rx Instructions: Use to check blood sugar three times daily. fluticasone propionate 50 mcg/actuation spray,suspension 1 spray intranasal DAILY Qty: 3 1RF Rx Instructions: administer into each nostril insulin aspart U-100 [Novolog FlexPen U-100 Insulin] 100 unit/mL (3 mL) insulin pen 5 unit SUBCUT TID Qty: 15 3RF Rx Instructions: Three times daily before meals plus sliding scale. 200-250 add 2 units. 250-300 add 3 units. 300-350 add 4 units. 350-400 add 5 units. 400-500 add 6 units. alcohol swabs [Alcohol Prep Pads] Pads, Medicated 1 pad topical QID Qty: 100 0RF pioglitazone 30 mg tablet See Rx Instructions .ROUTE .COMPLEX Qty: 90 1RF Dose Instruction: TAKE 1 TABLET EVERY DAY Rx Instructions: TAKE 1 TABLET EVERY DAY chlorthalidone 25 mg tablet See Rx Instructions .ROUTE .COMPLEX Qty: 90 1RF Dose Instruction: TAKE 1 TABLET EVERY DAY Rx Instructions: TAKE 1 TABLET EVERY DAY furosemide 20 mg tablet 20 mg PO DAILY Qty: 90 1RF losartan 25 mg tablet 25 mg PO QDAY Qty: 90 1RF Rx Instructions: Bridge rx while waiting for mail order rx. ([facility]) blood-glucose meter Kit See Rx Instructions .Route Qty: 1 0RF Rx Instructions: Check blood glucose TID before meals (DME) Blood Glucose Test Strip See Rx Instructions .Route Qty: 90 3RF Rx Instructions: Check blood glucose TID before meals (DME) lancets [Easy Touch Safety Lancets] 30 gauge misc See Rx Instructions .Route Qty: 200 3RF Rx Instructions: Check blood glucose TID before meals (DME) Dexcom G6 Musical Engineer Misc See Rx Instructions .Route Qty: 1 0RF Rx Instructions: As directed ([facility]) Dexcom G6 Sensor Device See Rx Instructions .Route Qty: 3 4RF Rx Instructions: As directed ([facility]) Dexcom G6 Transmitter Device See Rx Instructions .Route Qty: 1 4RF Rx Instructions: As directed metoprolol succinate 25 mg tablet extended release 24 hr See Rx Instructions .ROUTE .COMPLEX Qty: 180 0RF Dose Instruction: TAKE 1 TABLET TWICE DAILY Rx Instructions: TAKE 1 TABLET TWICE DAILY cefdinir 300 mg capsule 300 mg PO BID Qty: 20 0RF aspirin [Adult Low Dose Aspirin] 81 mg tablet,delayed release (DR/EC) 81 mg PO DAILY insulin glargine 100 unit/mL (3 mL) insulin pen 20 unit SUBCUT QPM Qty: 15 5RF pravastatin 20 mg tablet 20 mg PO BEDTIME Qty: 90 3RF celecoxib [Celebrex] 200 mg capsule 200 mg PO DAILY Qty: 30 2RF gabapentin 100 mg capsule 100 mg PO BEDTIME Qty: 60 2RF Rx Instructions: may increase to 2 po qhs mecobalamin (vitamin B12) PO DAILY Referrals: Miscellaneous,Doctor, MD [Primary Care Provider, Medical] Stand Alone Forms: Patient Portal/API
--- NOTE | 2025-09-26 18:19 | EKG_ITS ---
[address] [address] Test Date: 2025-09-26 Pat Name: Carlitos Abdullahi Department: [facility] Room: Gender: Female Enterprise Software Engineer: MILADY : 1945 Requested By: Order Number: [id number] Reading MD: Praveen Romeo MD Measurements Intervals [place] Rate: 73 P: 55 [place]: 196 QRS: 59 QRSD: 128 T: 53 QT: 446 QTc: 491 Interpretive Statements Normal sinus rhythm Right bundle branch block Electronically Signed On 09-27-2025 7:40:19 PST by Praveen Romeo MD
[2025-09-26 18:40] LABS: Add Manual Diff / Slide Review NO; Hematocrit 37.0 % (36-46); Hemoglobin 12.7 g/dL (12.0-16.0); Lymphocytes Absolute Auto 3200 /uL (1100-4500); Mean Corpuscular HGB Conc 34.3 % (30-36); Mean Corpuscular Hemoglobin 33.1 PG (26-34); Mean Corpuscular Volume 96.4 fL (80-100); Platelet Count 271 X10^3/uL (150-400)
[2025-09-26 18:49] LABS: INR 1.1 (0.9-1.3); Prothrombin Time 13.0 SECONDS (9.4-12.5)
[2025-09-26] MEDS: LACTATED RINGERS 1,000 ML 1000 ML IV (18:49)
[2025-09-26 18:52] LABS: PTT Partial Thromboplastin Tim 28 SECONDS (25.1-36.5)
[2025-09-26 18:54] LABS: Alanine Aminotransferase 18 IU/L (<35); Albumin 3.8 g/dL (3.5-5.0); Albumin Globulin Ratio 1.1 (1.0-2.8); Alkaline Phosphatase 101 U/L (38-126); Blood Urea Nitrogen 24 mg/dL (7-17); Calcium 9.3 mg/dL (8.4-10.2); Carbon Dioxide 25 mmol/L (22-32); Chloride 102 mmol/L (98-107); Creatine Kinase 43 U/L (30-135); Estimated Glomerular Filt Rate 54 mL/min (>60); Globulin 3.5 g/dL (1.7-4.1); Glucose 239 mg/dL (70-99); HEMOLYSIS 17 (0-50); Lipase 257 U/L (23-300); Magnesium 1.9 mg/dL (1.6-2.3); Potassium 4.6 mmol/L (3.4-5.1); Sodium 135 mmol/L (137-145); Total Protein 7.3 g/dL (6.3-8.2)
[2025-09-26 19:06] LABS: NT-proBNP (BNP-Adult 18+) 204 pg/mL (<450); Troponin I < 0.012 ng/mL (0.01-0.034)
--- NOTE | 2025-09-26 21:11 | PC.NURSE ---
Patient's alarm kept going off for removal of pulse ox probe. This PROFESSOR OF HISTORICAL THEOLOGY went to go put probe back on finger but patient stated I didnt like the noise it made. Don't touch me. This PROFESSOR OF HISTORICAL THEOLOGY explained the importance and purpose of the probe and the patient stated If they want to check my heart, then check my heart. I don't want it on Nurse of patient made aware of situation.
--- NOTE | 2025-09-26 21:15 | PC.NURSE ---
TIEN Huerta from [facility] was given an update on pt. She requests a follow up once establish whether patient is DC or being admitted.
[2025-09-26 22:05] LABS: Troponin I < 0.012 ng/mL (0.01-0.034)
--- NOTE | 2025-09-26 22:47 | PC.NURSE ---
Two attempts were made to call [employer] [phone] for RN to RN report prior to pt DC from hospital by ambulance unsuccessfully.
== END 2025-09-26 23:15 | disposition home or self-care (01) ==
PROVIDERS: Emergency Provider Family Medicine
DX: S09.90XA Unspecified injury of head, initial encounter (principal); M25.562 Pain in left knee; M25.561 Pain in right knee; R07.9 Chest pain, unspecified; W18.30XA Fall on same level, unspecified, initial encounter; Z79.01 Long term (current) use of anticoagulants
CPT/HCPCS: 36415; 70450; 71045; 72125; 72170; 73560; 80053; 82550; 83690; 83735; 83880; 84484; 85025; 85610; 85730; 93005; 93010; 96360; 96361; 99284; J7120